=== PATIENT | male | born 1965 | race American Indian/Alaskan Native ===

== ENCOUNTER 2017-06-10 00:10 | Inpatient (IN) | payer OTHER ==
--- NOTE | 2017-06-10 00:49 | Emergency Department Report ---
ED Palpitations HPI - General Chief Complaint: Arrhythmia/Palpitations Stated Complaint: SYNCOPAL EPISODES Time Seen by Provider: 06/10/17 00:42 Source: patient, EMS Mode of arrival: Stretcher Limitations: No Limitations - History of Present Illness Initial Comments: Patient was brought in by EMS after syncopal episode at home. On EMS arrival, patient was in A.fib with RVR. On arrival to ER, patient was in V.Tach. EMS gave patient one dose of Amiodarone without conversion of rhythm. - Related Data Allergies Allergy/AdvReac Type Severity Reaction Status Date / Time Sulfa (Sulfonamide Allergy Hives Verified 06/10/17 00:31 Antibiotics) ED Review of Systems ROS: Stated complaint: SYNCOPAL EPISODES Other details as noted in HPI Comment: All other systems reviewed and negative Constitutional: diaphoresis. denies: chills, fever Eyes: denies: eye pain, eye discharge, vision change ENT: denies: ear pain, throat pain Respiratory: denies: cough, shortness of breath, wheezing Cardiovascular: denies: chest pain, palpitations Endocrine: no symptoms reported Gastrointestinal: denies: abdominal pain, nausea, diarrhea Genitourinary: denies: urgency, dysuria Musculoskeletal: denies: back pain, joint swelling, arthralgia Skin: denies: rash, lesions Neurological: other (Syncope). denies: headache, weakness, paresthesias Psychiatric: denies: anxiety, depression Hematological/Lymphatic: denies: easy bleeding, easy bruising ED Past Medical Hx - Past Medical History Hx Hypertension: Yes Hx Congestive Heart Failure: Yes Hx Diabetes: Yes Additional medical history: gout - Surgical History Past Surgical History?: No - Family History Family history: hypertension - Social History Smoking Status: Former Smoker Substance Use Type: None ED Physical Exam - General Limitations: No Limitations General appearance: alert, in no apparent distress, anxious - Head Head exam: Present: atraumatic, normocephalic - Eye Eye exam: Present: normal appearance - ENT ENT exam: Present: mucous membranes moist - Neck Neck exam: Present: normal inspection - Respiratory Respiratory exam: Present: normal lung sounds bilaterally. Absent: respiratory distress - Cardiovascular Cardiovascular Exam: Present: regular rate, tachycardia, irregular rhythm. Absent: normal rhythm, systolic murmur, diastolic murmur, rubs, gallop - GI/Abdominal GI/Abdominal exam: Present: soft, normal bowel sounds - Rectal Rectal exam: Present: deferred - Extremities Exam Extremities exam: Present: normal inspection, pedal edema - Back Exam Back exam: Present: normal inspection - Neurological Exam Neurological exam: Present: alert, oriented X3 - Psychiatric Psychiatric exam: Present: normal affect, normal mood - Skin Skin exam: Present: warm, dry, intact, normal color. Absent: rash ED Course - Reevaluation(s) Reevaluation #1: 06/10/17 00:59 Patient and alert and responsive. Presently having a conversation with nurse at bedside. He is aware that his heart rhythm is abnormal and we are attempting to stabilize it. Critical Care Time: Yes Critical care attestation.: If time is entered above; I have spent that time in minutes in the direct care of this critically ill patient, excluding procedure time. ED Disposition Condition: Stable Referrals: MONTY ERNST MD [Primary Care Provider] - 3-5 Days
[2017-06-10] MEDS ORDERED: CARDIZEM 100 MG in D5W 80 ML IV SCH (01:00)
[2017-06-10 01:01] LABS: Hematocrit 42.4 % (35.5-45.6); Hemoglobin 13.9 gm/dl (11.8-15.2); Mean Corpuscular HGB Conc 33 % (32-34); Mean Corpuscular Hemoglobin 31 pg (28-32); Mean Corpuscular Volume 94 fl (84-94); Platelet Count 204 K/mm3 (140-440); Red Blood Count 4.49 M/mm3 (3.65-5.03); Red Cell Distribution Width 15.7 % (13.2-15.2)
--- NOTE | 2017-06-10 01:04 | XRay Report ---
FINAL REPORT EXAM: XR CHEST 1V AP HISTORY: syncope COMPARISON: None available. FINDINGS: Frontal view(s) of the chest obtained. Moderate cardiac enlargement. Shallow inspiration with crowding of bronchovascular markings. No gross focal consolidation or effusion. No pneumothorax. IMPRESSION: Moderate cardiac enlargement. Shallow inspiration. No gross focal consolidation.
[2017-06-10 01:11] LABS: INR 1.71 (0.87-1.13)
[2017-06-10] MEDS: CORDARONE 900 MG in D5W 482 ML IV SCH (01:20)
[2017-06-10 01:25] LABS: Albumin 3.5 g/dL (3.9-5); Calcium 8.9 mg/dL (8.4-10.2)
[2017-06-10 01:49] LABS: Chol/HDL Ratio 2.86 %
[2017-06-10] MEDS ORDERED: TORADOL IV ONE (02:54)
[2017-06-10 03:10] LABS: Band Neutrophils # (Manual) 5.5 K/mm3; Basophils % (Manual) 0 % (0.0-1.8); Eosinophils % (Manual) 0 % (0.0-4.3); Total Cells Counted 100
[2017-06-10 03:11] LABS: Anisocytosis 1+; Hypochromasia Few
[2017-06-10] MEDS ORDERED: PERCOCET 5/325 PO PRN (03:48)
[2017-06-10] MEDS ORDERED: MILK OF MAGNESIA PO PRN (03:48)
[2017-06-10] MEDS ORDERED: DULCOLAX PR PRN (03:48)
[2017-06-10] MEDS ORDERED: ZOFRAN IV PRN (03:48)
[2017-06-10] MEDS ORDERED: D50W (25GM) Syringe IV PRN (03:52)
[2017-06-10] MEDS ORDERED: VANCOMYCIN/NS 1 GM/250 ML 1 GM/250 ML BAG IV ONE (04:05)
--- NOTE | 2017-06-10 05:57 | History and Physical Report ---
History of Present Illness Date of examination: 06/10/17 Date of admission: 06/10/17 03:48 History of present illness: 51-year-old male a history of CHF, gout, diabetes, A. fib on Coumadin and had a syncopal episode at home for approximately 10 minutes. EMS was called and patient was brought to the emergency room for evaluation. He was found to be in V. tach, shocked 3 and was started on amiodarone drip Review Of Systems: Constitutional: no weight loss Ears, eyes, nose, mouth and throat: no nasal congestion, no nasal discharge, no sinus pressure, blurry vision, diplopia Neck: No neck pain or rigidity. Cardiovascular: No chest pain, palpitations Respiratory: No shortness of breath, cough Gastrointestinal: No abdominal pain, hematochezia Genitourinary : no dysuria, frequency , hematuria Musculoskeletal: no muscle ache Integumentary: no rash, no pruritis Neurological: no parathesias, focal weakness Endocrine: no cold or heat intolerance, no polyuria or polydipsia Hematologic/Lymphatic: no easy bruising, no easy bleeding, no gland swelling Allergic/Immunologic: no urticaria, no angioedema. PAST MEDICAL HISTORY:CHF, gout, diabetes, A. fib PAST SURGICAL HISTORY: None FAMILY HISTORY: Hypertension SOCIAL HISTORY: Denies alcohol, tobacco, drugs Medications and Allergies Allergies Allergy/AdvReac Type Severity Reaction Status Date / Time Sulfa (Sulfonamide Allergy Hives Verified 06/10/17 00:31 Antibiotics) Home Medications Medication Instructions Recorded Confirmed Last Taken Type Albuterol Sulfate [Ventolin Hfa] 2 puff IH Q4H PRN 06/10/17 06/10/17 Unknown History Allopurinol 300 mg PO QDAY 06/10/17 06/10/17 06/09/17 History Amiodarone [Cordarone 200 MG TAB] 200 mg PO DAILY 06/10/17 06/10/17 06/09/17 History Bumetanide 2 mg PO TID 06/10/17 06/10/17 06/09/17 History Digoxin [Lanoxin] 0.125 mg PO DAILY 06/10/17 06/10/17 06/09/17 History Gabapentin [Neurontin] 200 mg PO BID 06/10/17 06/10/17 Unknown History ISOSORBIDE MONOnitrate [Imdur ER] 60 mg PO QDAY 06/10/17 06/10/17 06/09/17 History Lisinopril [Zestril TAB] 2.5 mg PO QDAY 06/10/17 06/10/17 06/09/17 History Lovastatin [Altoprev] 40 mg PO DAILY 06/10/17 06/10/17 06/09/17 History Metoprolol [Lopressor TAB] 50 mg PO TID 06/10/17 06/10/17 06/09/17 History Nitroglycerin [Nitrostat] 0.4 mg SL Q5M PRN 06/10/17 06/10/17 Unknown History [place]-3S/Dha/Epa/Fish Oil [[place]-3 1 each PO BID 06/10/17 06/10/17 06/09/17 History Fish Oil 1,000 mg Sfgl] Oxycodone HCl/Acetaminophen 1 each PO BID PRN 06/10/17 06/10/17 Unknown History [Percocet 10/325 mg] Warfarin [Coumadin] 5 mg PO QDAY 06/10/17 06/10/17 06/09/17 History glipiZIDE [Glipizide] 10 mg PO BID 06/10/17 06/10/17 06/09/17 History predniSONE [Deltasone] 20 mg PO QDAY 06/10/17 06/10/17 06/09/17 History Active Meds: Active Medications Acetaminophen (Tylenol) 650 mg PO Q4H PRN PRN Reason: Pain MILD(1-3)/Fever >100.5/WHEELER Bisacodyl (Dulcolax) 10 mg [place] QDAY PRN PRN Reason: Constipation unrelieved by MOM Dextrose (D50w (25gm) Syringe) 50 ml IV PRN PRN PRN Reason: Hypoglycemia Amiodarone HCl 900 mg/ (Dextrose) 500 mls @ 33.33 mls/hr IV DIRECT MIGUE; 1 MG /MIN PRN Reason: Protocol Last Admin: 06/10/17 01:20 Dose: 1 mg/min, 33.33 mls/hr Piperacillin Sod/Tazobactam Sod (Zosyn/Ns 2.25 Gm/50ml) 2.25 gm in 50 mls @ 100 mls/hr IV Q6HR MIGUE Insulin Aspart (Novolog) 0 units SUB-Q ACHS MIGUE PRN Reason: Protocol Magnesium Hydroxide (Milk Of Magnesia) 30 ml PO Q4H PRN PRN Reason: Constipation Ondansetron HCl (Zofran) 4 mg IV Q8H PRN PRN Reason: N/V unrelieved by Reglan Oxycodone/Acetaminophen (Percocet 5/325) 1 tab PO Q6H PRN PRN Reason: Pain, Moderate (4-6) Exam - Physical Exam Narrative exam: Gen. appearance: Patient lying in bed in no acute distress HEENT: Normocephalic/atraumatic, pupils equal round reactive to light, extra occular movement intact, no scleral icterus, no JVD or thyromegaly or nodule, neck is supple, mucous membrane moist, no erythema or exudate Heart: S1-S2, regular rate and rhythm Lungs: Clear to auscultation bilateral breathing comfortable Abdomen: Positive bowel sounds, nontender, nondistended, no organomegaly Extremities: No edema, cyanosis, clubbing Neuro:: Oriented 3 , cranial nerves II-12 intact, speech, motor intact Skin: No rash, nodules, warm dry - Constitutional Vitals: Temp Pulse Resp BP Pulse Ox 60 20 102/42 99 06/10/17 05:30 06/10/17 05:30 06/10/17 05:30 06/10/17 05:30 Results - Labs CBC & Chem 7: 06/14/17 05:16 06/14/17 05:16 Labs: Abnormal lab results 06/10/17 06/10/17 06/10/17 Range/Units 00:35 00:47 00:47 WBC 21.3 H (4.5-11.0) K/mm3 RDW 15.7 H (13.2-15.2) % Lymphocytes % (Manual) 9.0 L (13.4-35.0) % Seg Neutrophils # Man 10.9 H (1.8-7.7) K/mm3 Monocytes # (Manual) 1.1 H (0.0-0.8) K/mm3 PT 21.0 H (12.2-14.9) Sec. INR 1.71 H (0.87-1.13) APTT 24.0 L (24.2-36.6) Sec. POC ABG pCO2 34.8 L (35-45) POC ABG pO2 56 L (80-105) BUN (9-20) mg/dL Creatinine (0.8-1.5) mg/dL Glucose (75-100) mg/dL AST (5-40) units/L Troponin T (0.00-0.029) ng/mL NT-Pro-B Natriuret Pep (0-900) pg/mL Albumin (3.9-5) g/dL Triglycerides (2-149) mg/dL HDL Cholesterol (40-59) mg/dL 06/10/17 06/10/17 06/10/17 Range/Units 00:47 00:47 02:40 WBC (4.5-11.0) K/mm3 RDW (13.2-15.2) % Lymphocytes % (Manual) (13.4-35.0) % Seg Neutrophils # Man (1.8-7.7) K/mm3 Monocytes # (Manual) (0.0-0.8) K/mm3 PT (12.2-14.9) Sec. INR (0.87-1.13) APTT (24.2-36.6) Sec. POC ABG pCO2 (35-45) POC ABG pO2 (80-105) BUN 35 H (9-20) mg/dL Creatinine 2.0 H (0.8-1.5) mg/dL Glucose 187 H (75-100) mg/dL AST 43 H (5-40) units/L Troponin T 0.049 H (0.00-0.029) ng/mL NT-Pro-B Natriuret Pep 3826 H (0-900) pg/mL Albumin 3.5 L (3.9-5) g/dL Triglycerides 155 H (2-149) mg/dL HDL Cholesterol 61 H (40-59) mg/dL - Imaging and Cardiology EKG: image reviewed Chest x-ray: image reviewed Assessment and Plan Assessment V. tach/A. fib Syncope secondary to #1 SIRS Abnormal cardiac enzymes CHF, stable Gout Diabetes Plan Admit to medicine Continue amiodarone drip, check cardiac enzymes, echo Consult cardiology, critical care Start and pelvic antibiotics with Zosyn, vancomycin, full cultures CAT scan of the chest and head was ordered but the patient was not able to sit on the scanner secondary to his weight Check d-dimer, DVT prophylaxis with Coumadin check fingersticks initiated insulin sliding scale
[2017-06-10] MEDS ORDERED: ZOSYN/NS 4.5GM/100ML 4.5 GM/100 ML VIAL IV SCH (06:00)
[2017-06-10] MEDS: ZOSYN/NS 2.25 GM/50ML 2.25 GM/50 ML BAG IV SCH ×3 (07:10→20:55)
[2017-06-10] MEDS: NOVOLOG SUB-Q SCH ×4 (10:07→23:10)
--- NOTE | 2017-06-10 17:55 | Event Note ---
Date: 06/10/17 Patient was seen and evaluated this morning, patient didn't have any complaints , continue management for H&P.
[2017-06-10 22:19] LABS: Creatine Kinase MB 2.2 ng/mL (0.0-4.0)
[2017-06-10] MEDS: TYLENOL PO PRN (23:18)
[2017-06-11] MEDS: ZOSYN/NS 2.25 GM/50ML 2.25 GM/50 ML BAG IV SCH ×4 (01:10→20:01)
[2017-06-11] MEDS: CORDARONE 900 MG in D5W 482 ML IV SCH (02:25)
[2017-06-11 06:17] LABS: Basophils % (Auto) 0.5 % (0.0-1.8); Eosinophils # (Auto) 0.1 K/mm3 (0.0-0.4); Eosinophils % (Auto) 0.6 % (0.0-4.3); Hematocrit 38.8 % (35.5-45.6); Hemoglobin 12.9 gm/dl (11.8-15.2); Lymphocytes # (Auto) 1.2 K/mm3 (1.2-5.4); Lymphocytes % (Auto) 12.7 % (13.4-35.0); Mean Corpuscular HGB Conc 33 % (32-34); Mean Corpuscular Hemoglobin 31 pg (28-32); Mean Corpuscular Volume 94 fl (84-94); Monocytes # (Auto) 0.6 K/mm3 (0.0-0.8); Monocytes % (Auto) 6.9 % (0.0-7.3); Platelet Count 155 K/mm3 (140-440); Red Blood Count 4.13 M/mm3 (3.65-5.03); Red Cell Distribution Width 15.8 % (13.2-15.2)
[2017-06-11] MEDS: NOVOLOG SUB-Q SCH ×4 (08:05→21:20)
[2017-06-11] MEDS: TYLENOL PO PRN (08:44)
--- NOTE | 2017-06-11 09:20 | Consultation ---
History of Present Illness Consult date: 06/11/17 Requesting physician: SAIMA GUEVARA Consult reason: arrhythmia History of present illness: Mick Buck is a 51 y.o. male who is followed by [place] [facility] with a history of chronic systolic heart failure, afib on coumadin, hypertension, diabetes, hyperlipidemia, CKD, NHUNG on CPAP, morbid obesity who presented following a syncopal episode at home. He was found to be in v tach vs. afib with abberancy and was shocked x 3 and started on an amiodarone gtt. He is currently in afib with controlled ventricular rate. He denies any chest pain or previous syncopal episodes. He has chronic shortness of breath and HOUSE. Echo showed EF 10-15%, RVSP 59 mmHg. Past History Past Medical History: atrial fib, heart failure, hypertension, hyperlipidemia, other (cardiomyopathy, CKD, NHUNG on CPAP) Past Surgical History: No surgical history Social history: . denies: smoking, alcohol abuse Family history: no significant family history Medications and Allergies Allergies Allergy/AdvReac Type Severity Reaction Status Date / Time Sulfa (Sulfonamide Allergy Hives Verified 06/10/17 00:31 Antibiotics) Home Medications Medication Instructions Recorded Confirmed Last Taken Type Albuterol Sulfate [Ventolin Hfa] 2 puff IH Q4H PRN 06/10/17 06/10/17 Unknown History Allopurinol 300 mg PO QDAY 06/10/17 06/10/17 06/09/17 History Amiodarone [Cordarone 200 MG TAB] 200 mg PO DAILY 06/10/17 06/10/17 06/09/17 History Bumetanide 2 mg PO TID 06/10/17 06/10/17 06/09/17 History Digoxin [Lanoxin] 0.125 mg PO DAILY 06/10/17 06/10/17 06/09/17 History Gabapentin [Neurontin] 200 mg PO BID 06/10/17 06/10/17 Unknown History ISOSORBIDE MONOnitrate [Imdur ER] 60 mg PO QDAY 06/10/17 06/10/17 06/09/17 History Lisinopril [Zestril TAB] 2.5 mg PO QDAY 06/10/17 06/10/17 06/09/17 History Lovastatin [Altoprev] 40 mg PO DAILY 06/10/17 06/10/17 06/09/17 History Metoprolol [Lopressor TAB] 50 mg PO TID 06/10/17 06/10/17 06/09/17 History Nitroglycerin [Nitrostat] 0.4 mg SL Q5M PRN 06/10/17 06/10/[address] [place]-3S/Dha/Epa/Fish Oil [[place]-3 1 each PO BID 06/10/17 06/10/17 06/09/17 History Fish Oil 1,000 mg Sfgl] Oxycodone HCl/Acetaminophen 1 each PO BID PRN 06/10/17 06/10/17 Unknown History [Percocet 10/325 mg] Warfarin [Coumadin] 5 mg PO QDAY 06/10/17 06/10/17 06/09/17 History glipiZIDE [Glipizide] 10 mg PO BID 06/10/17 06/10/17 06/09/17 History predniSONE [Deltasone] 20 mg PO QDAY 06/10/17 06/10/17 06/09/17 History Active Meds: Active Medications Acetaminophen (Tylenol) 650 mg PO Q4H PRN PRN Reason: Pain MILD(1-3)/Fever >100.5/WHEELER Last Admin: 06/11/17 08:44 Dose: 650 mg Bisacodyl (Dulcolax) 10 mg [place] QDAY PRN PRN Reason: Constipation unrelieved by MOM Dextrose (D50w (25gm) Syringe) 50 ml IV PRN PRN PRN Reason: Hypoglycemia Last Admin: 06/11/17 06:55 Dose: 50 ml Amiodarone HCl 900 mg/ (Dextrose) 500 mls @ 33.33 mls/hr IV DIRECT MIGUE; 1 MG /MIN PRN Reason: Protocol Last Admin: 06/11/17 02:25 Dose: 1 mg/min, 33.33 mls/hr Piperacillin Sod/Tazobactam Sod (Zosyn/Ns 2.25 Gm/50ml) 2.25 gm in 50 mls @ 100 mls/hr IV Q6HR MIGUE Last Admin: 06/11/17 06:54 Dose: 100 mls/hr Insulin Aspart (Novolog) 0 units SUB-Q ACHS MIGUE PRN Reason: Protocol Last Admin: 06/11/17 08:05 Dose: Not Given Magnesium Hydroxide (Milk Of Magnesia) 30 ml PO Q4H PRN PRN Reason: Constipation Ondansetron HCl (Zofran) 4 mg IV Q8H PRN PRN Reason: N/V unrelieved by Reglan Oxycodone/Acetaminophen (Percocet 5/325) 1 tab PO Q6H PRN PRN Reason: Pain, Moderate (4-6) Review of Systems Constitutional: no fever, no chills Ears, nose, mouth and throat: no nasal congestion, no nasal discharge, no sinus pressure Cardiovascular: orthopnea, shortness of breath, dyspnea on exertion, no chest pain Respiratory: shortness of breath, dyspnea on exertion, no cough, no congestion, no wheezing Gastrointestinal: no abdominal pain, no nausea, no vomiting, no diarrhea Genitourinary Male: no dysuria, no hematuria Musculoskeletal: no neck stiffness, no neck pain, no myalgias Neurological: syncope, no parathesias, no numbness, no tingling Endocrine: no cold intolerance, no heat intolerance Hematologic/Lymphatic: no easy bruising, no easy bleeding Allergic/Immunologic: no urticaria, no wheezing Physical Examination Last Vital Signs Temp 99.0 F 06/11/17 12:01 Pulse 86 06/11/17 12:01 Resp 20 06/11/17 12:01 BP 131/54 06/11/17 12:01 Pulse Ox 93 06/11/17 12:01 General appearance: no acute distress HEENT: Positive: PERRL, Normocephaly, Mucus Membranes Moist Neck: Positive: neck supple, trachea midline Cardiac: Positive: irregularly irregular, S1/S2 Lungs: Positive: Decreased Breath Sounds Neuro: Positive: Grossly Intact Abdomen: Positive: Soft, Active Bowel Sounds. Negative: Tender Skin: Negative: Rash Extremities: Present: +2 Edema Results 06/11/17 05:47 06/11/17 05:47 Cardiac Enzymes 06/10/17 Range/Units 21:45 CK-MB (CK-2) 2.2 (0.0-4.0) ng/mL CBC 06/11/17 Range/Units 05:47 WBC 9.3 (4.5-11.0) K/mm3 RBC 4.13 (3.65-5.03) M/mm3 Hgb 12.9 (11.8-15.2) gm/dl Hct 38.8 (35.5-45.6) % Plt Count 155 (140-440) K/mm3 Lymph # 1.2 (1.2-5.4) K/mm3 [place] # 0.6 (0.0-0.8) K/mm3 Eos # 0.1 (0.0-0.4) K/mm3 Baso # 0.0 (0.0-0.1) K/mm3 Comprehensive Metabolic Panel 06/11/17 Range/Units 05:47 Sodium 138 (137-145) mmol/L Potassium 4.3 (3.6-5.0) mmol/L Chloride 96.8 L (98-107) mmol/L Carbon Dioxide 27 (22-30) mmol/L BUN 44 H (9-20) mg/dL Creatinine 2.0 H (0.8-1.5) mg/dL Glucose 78 (75-100) mg/dL Calcium 9.0 (8.4-10.2) mg/dL - Imaging and Cardiology Echo: report reviewed (EF 10-15%) EKG: image reviewed EKG interpretations - Telemetry EKG Rhythm: Atrial Fibrillation - EKG Supraventricular dysrhythmia: atrial fibrillation Assessment and Plan Assessment: Syncope VT vs. afib with abberancy-->shocked x 3 Acute on chronic HFREF EF 10-15% Hypotension-->improved with Fever Chronic atrial fibrillation-->currently controlled ventricular rate Cardiomyopathy EF 10-15% Hypertension Hyperlipidemia Diabetes Chronic kidney disease NHUNG on CPAP Morbid obesity PLAN: Initiate PO amiodarone and d/c IV amio gtt after first PO dose given. Continue close monitoring of heart rate and rhythm. Patient will ultimately need ICD implantation. Await call back from [facility] as to whether procedure may be done here or if patient will need to be transferred to a [facility] facility. The patient has been seen in conjunction with Dr. Woodruff who agrees with the assessment and plan of care.
[2017-06-11] MEDS ORDERED: NACL 0.9% 250ML 250 ML IV ONE (10:19)
[2017-06-11] MEDS ORDERED: NACL 0.9% 500 ML 500 ML ONE (10:23)
[2017-06-11 12:16] LABS: Bacteria,Urine 1+ /HPF (Negative); Bilirubin,Urine NEG (Negative); Blood,Urine NEG (Negative); Color,Urine Yellow (Yellow); Nitrite,Urine NEG (Negative)
[2017-06-11] MEDS: CORDARONE PO SCH ×2 (15:13→21:20)
--- NOTE | 2017-06-11 15:17 | Progress Note ---
Assessment and Plan Assessment and plan: 51-year-old -German with past medical history significant for morbid obesity, congestive heart failure, sleep apnea, on CPAP as admitted yesterday after the patient has syncopal episode Syncopal episode - Secondary to V. fib versus A. fib with aberrancy - Patient was shocked 3 times yesterday - Patient is currently on amiodarone drip and to be switched to by mouth amiodarone - Patient needs ICD -Cardiology consulted Acute on chronic systolic CHF - Patient needs ICD before discharge Obstructive sleep apnea - Continue CPAP SIRS - Evidenced by leukocytosis and fever - Patient is on IV Zosyn Hypotension - Resolved DVT prophylaxis Disposition - I have discussed with [place] physician about the management plan, the need for ICD placement. Patient had hypotension this morning and was not stable for transfer at that time. Physician will call me tomorrow and we'll discuss for further management plan. History Interval history: Patient was seen and evaluated this morning, patient denied shortness of breath , syncopal episode after admission, chest pain. Hospitalist Physical - Physical exam Narrative exam: Not in cardiopulmonary distress. Patient is on BiPAP intermittently. The patient is morbidly obese. Vital signs as documented. Head exam is unremarkable. No scleral icterus . Neck is without jugular venous distension, thyromegaly, or carotid bruits. Lungs are clear to auscultation. Cardiac exam reveals regular rate and Rhythm. Abdominal exam reveals obese abdomen. Extremities are nonedematous and both femoral and pedal pulses are normal. 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 No focal weakness. - Constitutional Vitals: Temp Pulse Resp BP Pulse Ox 99.0 F 86 20 131/54 93 06/11/17 12:01 06/11/17 12:01 06/11/17 12:01 06/11/17 12:01 06/11/17 12:01 General appearance: Present: no acute distress Results - Labs CBC & Chem 7: 06/11/17 05:47 06/11/17 05:47 Labs: Laboratory Last Values WBC 9.3 K/mm3 (4.5-11.0) 06/11/17 05:47 RBC 4.13 M/mm3 (3.65-5.03) 06/11/17 05:47 Hgb 12.9 gm/dl (11.8-15.2) 06/11/17 05:47 Hct 38.8 % (35.5-45.6) 06/11/17 05:47 MCV 94 fl (84-94) 06/11/17 05:47 MCH 31 pg (28-32) 06/11/17 05:47 MCHC 33 % (32-34) 06/11/17 05:47 RDW 15.8 % (13.2-15.2) H 06/11/17 05:47 Plt Count 155 K/mm3 (140-440) 06/11/17 05:47 Lymph % (Auto) 12.7 % (13.4-35.0) L 06/11/17 05:47 [place] % (Auto) 6.9 % (0.0-7.3) 06/11/17 05:47 Eos % (Auto) 0.6 % (0.0-4.3) 06/11/17 05:47 Baso % (Auto) 0.5 % (0.0-1.8) 06/11/17 05:47 Lymph # 1.2 K/mm3 (1.2-5.4) 06/11/17 05:47 [place] # 0.6 K/mm3 (0.0-0.8) 06/11/17 05:47 Eos # 0.1 K/mm3 (0.0-0.4) 06/11/17 05:47 Baso # 0.0 K/mm3 (0.0-0.1) 06/11/17 05:47 Add Manual Diff Complete 06/10/17 00:47 Total Counted 100 06/10/17 00:47 Seg Neutrophils % 79.3 % (40.0-70.0) H 06/11/17 05:47 Seg Neuts % (Manual) 51.0 % (40.0-70.0) 06/10/17 00:47 Band Neutrophils % 26.0 % 06/10/17 00:47 Lymphocytes % (Manual) 9.0 % (13.4-35.0) L 06/10/17 00:47 Reactive Lymphs % (Man) 0 % 06/10/17 00:47 Monocytes % (Manual) 5.0 % (0.0-7.3) 06/10/17 00:47 Eosinophils % (Manual) 0 % (0.0-4.3) 06/10/17 00:47 Basophils % (Manual) 0 % (0.0-1.8) 06/10/17 00:47 Metamyelocytes % 9.0 % 06/10/17 00:47 Myelocytes % 0 % 06/10/17 00:47 Promyelocytes % 0 % 06/10/17 00:47 Blast Cells % 0 % 06/10/17 00:47 Nucleated RBC % Not Reportable 06/10/17 00:47 Seg Neutrophils # 7.4 K/mm3 (1.8-7.7) 06/11/17 05:47 Seg Neutrophils # Man 10.9 K/mm3 (1.8-7.7) H 06/10/17 00:47 Band Neutrophils # 5.5 K/mm3 06/10/17 00:47 Lymphocytes # (Manual) 1.9 K/mm3 (1.2-5.4) 06/10/17 00:47 Abs React Lymphs (Man) 0.0 K/mm3 06/10/17 00:47 Monocytes # (Manual) 1.1 K/mm3 (0.0-0.8) H 06/10/17 00:47 Eosinophils # (Manual) 0.0 K/mm3 (0.0-0.4) 06/10/17 00:47 Basophils # (Manual) 0.0 K/mm3 (0.0-0.1) 06/10/17 00:47 Metamyelocytes # 1.9 K/mm3 06/10/17 00:47 Myelocytes # 0.0 K/mm3 06/10/17 00:47 Promyelocytes # 0.0 K/mm3 06/10/17 00:47 Blast Cells # 0.0 K/mm3 06/10/17 00:47 WBC Morphology Not Reportable 06/10/17 00:47 Hypersegmented Neuts Not Reportable 06/10/17 00:47 Hyposegmented Neuts Not Reportable 06/10/17 00:47 Hypogranular Neuts Not Reportable 06/10/17 00:47 Smudge Cells Not Reportable 06/10/17 00:47 Toxic Granulation Not Reportable 06/10/17 00:47 Toxic Vacuolation Not Reportable 06/10/17 00:47 Dohle Bodies Not Reportable 06/10/17 00:47 Pelger-Huet Anomaly Not Reportable 06/10/17 00:47 Dolly Rods Not Reportable 06/10/17 00:47 Platelet Estimate Appears normal 06/10/17 00:47 Clumped Platelets Not Reportable 06/10/17 00:47 Plt Clumps, EDTA Not Reportable 06/10/17 00:47 Large Platelets Not Reportable 06/10/17 00:47 Giant Platelets Not Reportable 06/10/17 00:47 Platelet Satelliting Not Reportable 06/10/17 00:47 Plt Morphology Comment Not Reportable 06/10/17 00:47 RBC Morphology Not Reportable 06/10/17 00:47 Dimorphic RBCs Not Reportable 06/10/17 00:47 Polychromasia Not Reportable 06/10/17 00:47 Hypochromasia Few 06/10/17 00:47 Poikilocytosis Not Reportable 06/10/17 00:47 Anisocytosis 1+ 06/10/17 00:47 Microcytosis Not Reportable 06/10/17 00:47 Macrocytosis Not Reportable 06/10/17 00:47 Spherocytes Not Reportable 06/10/17 00:47 Pappenheimer Bodies Not Reportable 06/10/17 00:47 Sickle Cells Not Reportable 06/10/17 00:47 Target Cells Not Reportable 06/10/17 00:47 Tear Drop Cells Not Reportable 06/10/17 00:47 Ovalocytes Not Reportable 06/10/17 00:47 Helmet Cells Not Reportable 06/10/17 00:47 [place] Bodies Not Reportable 06/10/17 00:47 [place] Rings Not Reportable 06/10/17 00:47 Meryl Cells Not Reportable 06/10/17 00:47 Bite Cells Not Reportable 06/10/17 00:47 Crenated Cell Not Reportable 06/10/17 00:47 Elliptocytes Not Reportable 06/10/17 00:47 Acanthocytes (Spur) Not Reportable 06/10/17 00:47 Rouleaux Not Reportable 06/10/17 00:47 Hemoglobin C Crystals Not Reportable 06/10/17 00:47 Schistocytes Not Reportable 06/10/17 00:47 Malaria parasites Not Reportable 06/10/17 00:47 Antwan Bodies Not Reportable 06/10/17 00:47 Hem Pathologist Commnt No 06/10/17 00:47 PT 21.0 Sec. (12.2-14.9) H 06/10/17 00:47 INR 1.71 (0.87-1.13) H 06/10/17 00:47 APTT 24.0 Sec. (24.2-36.6) L 06/10/17 00:47 D-Dimer 4355.41 ng/mlDDU (0-234) H 06/10/17 21:45 POC ABG pH 7.443 (7.35-7.45) 06/10/17 00:35 POC ABG pCO2 34.8 (35-45) L 06/10/17 00:35 POC ABG pO2 56 (80-105) L 06/10/17 00:35 POC ABG HCO3 23.8 06/10/17 00:35 POC ABG Total CO2 25 06/10/17 00:35 POC ABG O2 Sat 90 06/10/17 00:35 POC ABG Base Excess 0 06/10/17 00:35 FiO2 100 % 06/10/17 00:35 Sodium 138 mmol/L (137-145) 06/11/17 05:47 Potassium 4.3 mmol/L (3.6-5.0) 06/11/17 05:47 Chloride 96.8 mmol/L (98-107) L 06/11/17 05:47 Carbon Dioxide 27 mmol/L (22-30) 06/11/17 05:47 Anion Gap 19 mmol/L 06/11/17 05:47 BUN 44 mg/dL (9-20) H 06/11/17 05:47 Creatinine 2.0 mg/dL (0.8-1.5) H 06/11/17 05:47 Estimated GFR 43 ml/min 06/11/17 05:47 BUN/Creatinine Ratio 22 % 06/11/17 05:47 Glucose 78 mg/dL (75-100) 06/11/17 05:47 POC Glucose 108 (70-105) H 06/11/17 12:10 Lactic Acid 1.70 mmol/L (0.7-2.0) 06/10/17 02:47 Calcium 9.0 mg/dL (8.4-10.2) 06/11/17 05:47 Total Bilirubin 0.50 mg/dL (0.1-1.2) 06/10/17 00:47 AST 43 units/L (5-40) H 06/10/17 00:47 ALT 30 units/L (7-56) 06/10/17 00:47 Alkaline Phosphatase 119 units/L (35-129) 06/10/17 00:47 Total Creatine Kinase 102 units/L (55-170) 06/10/17 21:45 CK-MB (CK-2) 2.2 ng/mL (0.0-4.0) 06/10/17 21:45 CK-MB (CK-2) Rel Index 2.1 (0-4) 06/10/17 21:45 Troponin T 0.063 ng/mL (0.00-0.029) H D 06/10/17 21:45 NT-Pro-B Natriuret Pep 3826 pg/mL (0-900) H 06/10/17 02:40 Total Protein 7.2 g/dL (6.3-8.2) 06/10/17 00:47 Albumin 3.5 g/dL (3.9-5) L 06/10/17 00:47 Albumin/Globulin Ratio 0.9 % 06/10/17 00:47 Triglycerides 155 mg/dL (2-149) H 06/10/17 00:47 Cholesterol 175 mg/dL (50-199) 06/10/17 00:47 LDL Cholesterol Direct 83 mg/dL (50-130) 06/10/17 00:47 HDL Cholesterol 61 mg/dL (40-59) H 06/10/17 00:47 Cholesterol/HDL Ratio 2.86 % 06/10/17 00:47 Urine Color Yellow (Yellow) 06/11/17 11:39 Urine Turbidity Cloudy (Clear) 06/11/17 11:39 Urine pH 5.0 (5.0-7.0) 06/11/17 11:39 Ur Specific [place] 1.016 (1.003-1.030) 06/11/17 11:39 Urine Protein 30 mg/dl mg/dL (Negative) 06/11/17 11:39 Urine Glucose (UA) Neg mg/dL (Negative) 06/11/17 11:39 Urine Ketones Neg mg/dL (Negative) 06/11/17 11:39 Urine Blood Neg (Negative) 06/11/17 11:39 Urine Nitrite Neg (Negative) 06/11/17 11:39 Urine Bilirubin Neg (Negative) 06/11/17 11:39 Urine Urobilinogen 2.0 mg/dL (<2.0) 06/11/17 11:39 Ur Leukocyte Esterase Mod (Negative) 06/11/17 11:39 Urine WBC (Auto) 31.0 /HPF (0.0-6.0) H 06/11/17 11:39 Urine RBC (Auto) 4.0 /HPF (0.0-6.0) 06/11/17 11:39 U Epithel Cells (Auto) 1.0 /HPF (0-13.0) 06/11/17 11:39 Urine Bacteria (Auto) 1+ /HPF (Negative) 06/11/17 11:39
[2017-06-11] MEDS ORDERED: PROAIR IH PRN (17:36)
[2017-06-11] MEDS ORDERED: PROVENTIL IH PRN (17:42)
[2017-06-11] MEDS ORDERED: COUMADIN PO SCH (18:00)
[2017-06-11] MEDS: COUMADIN PO SCH (18:51)
[2017-06-11] MEDS: GLUCOTROL PO SCH (21:19)
[2017-06-11] MEDS: PRAVACHOL PO SCH (21:19)
[2017-06-11] MEDS: NEURONTIN PO SCH (21:20)
[2017-06-12 00:30] LABS: INR 1.73 (0.87-1.13)
[2017-06-12] MEDS: ZOSYN/NS 2.25 GM/50ML 2.25 GM/50 ML BAG IV SCH ×3 (01:23→12:22)
[2017-06-12] MEDS: NOVOLOG SUB-Q SCH ×4 (07:49→21:31)
[2017-06-12 08:26] LABS: INR 1.64 (0.87-1.13)
[2017-06-12 09:26] LABS: Basophils # (Auto) 0.1 K/mm3 (0.0-0.1); Basophils % (Auto) 0.8 % (0.0-1.8); Eosinophils % (Auto) 0.3 % (0.0-4.3); Hematocrit 36.8 % (35.5-45.6); Hemoglobin 12.3 gm/dl (11.8-15.2); Lymphocytes # (Auto) 1.2 K/mm3 (1.2-5.4); Lymphocytes % (Auto) 17.4 % (13.4-35.0); Mean Corpuscular HGB Conc 33 % (32-34); Mean Corpuscular Hemoglobin 31 pg (28-32); Mean Corpuscular Volume 94 fl (84-94); Monocytes # (Auto) 0.8 K/mm3 (0.0-0.8); Monocytes % (Auto) 11.2 % (0.0-7.3); Platelet Count 151 K/mm3 (140-440); Red Blood Count 3.92 M/mm3 (3.65-5.03); Red Cell Distribution Width 15.5 % (13.2-15.2)
[2017-06-12 09:38] LABS: Calcium 8.6 mg/dL (8.4-10.2)
[2017-06-12] MEDS: NEURONTIN PO SCH ×2 (09:58→21:14)
[2017-06-12] MEDS: CORDARONE PO SCH ×2 (09:58→21:14)
[2017-06-12] MEDS: ZYLOPRIM PO SCH (09:58)
[2017-06-12] MEDS: GLUCOTROL PO SCH ×3 (09:58→21:31)
[2017-06-12] MEDS: DELTASONE PO SCH (10:00)
[2017-06-12] MEDS ORDERED: NON-FORMULARY (Lovastatin [Altoprev] 40 MG) PO SCH (10:00)
--- NOTE | 2017-06-12 11:35 | Progress Note ---
Assessment and Plan Assessment: Syncope VT vs. afib with abberancy-->shocked x 3 (06/11/17) Acute on chronic HFREF EF 10-15% Hypotension-->improved with IVF Fever/?bacteremia (1/2 positive blood cultures) Chronic atrial fibrillation-->currently controlled ventricular rate Cardiomyopathy EF 10-15% Hypertension Hyperlipidemia Diabetes Chronic kidney disease NHUNG on CPAP Morbid obesity PLAN: Patient remains in afib with CVR. Will resume low dose coreg and closely monitor blood pressure. Await call back from [place] as to whether ICD procedure may be done here or if patient will need to be transferred to a [place] facility. In the meantime, recommend ID consultation for recommendations regarding timing of ICD implantation given fever and possible bacteremia. The patient has been seen in conjunction with Dr. Woodruff who agrees with the assessment and plan of care. Subjective Date of service: 06/12/17 Principal diagnosis: syncope, vtach vs. afib with abberancy Interval history: The patient is resting in bed. No new complaints. Atrial fibrillation with controlled ventricular rate on the monitor. Objective Last Vital Signs Temp 99.6 F 06/12/17 07:31 Pulse 76 06/12/17 08:55 Resp 24 06/12/17 07:31 BP 118/59 06/12/17 07:31 Pulse Ox 91 06/12/17 07:31 - Physical Examination General: No Apparent Distress HEENT: Positive: PERRL, Normocephaly, Mucus Membranes Moist Neck: Positive: neck supple, trachea midline Cardiac: Positive: irregularly irregular, S1/S2 Lungs: Positive: clear to auscultation Neuro: Positive: Grossly Intact Abdomen: Positive: Soft, Active Bowel Sounds. Negative: Tender Skin: Negative: Rash Extremities: Present: +2 Edema - Labs and Meds Coagulation 06/11/17 06/12/17 Range/Units 23:32 07:19 PT 21.2 H 20.4 H (12.2-14.9) Sec. INR 1.73 H 1.64 H (0.87-1.13) CBC 06/12/17 Range/Units 09:05 WBC 7.2 (4.5-11.0) K/mm3 RBC 3.92 (3.65-5.03) M/mm3 Hgb 12.3 (11.8-15.2) gm/dl Hct 36.8 (35.5-45.6) % Plt Count 151 (140-440) K/mm3 Lymph # 1.2 (1.2-5.4) K/mm3 [place] # 0.8 (0.0-0.8) K/mm3 Eos # 0.0 (0.0-0.4) K/mm3 Baso # 0.1 (0.0-0.1) K/mm3 Comprehensive Metabolic Panel 06/12/17 Range/Units 09:05 Sodium 141 (137-145) mmol/L Potassium 4.2 (3.6-5.0) mmol/L Chloride 99.3 (98-107) mmol/L Carbon Dioxide 27 (22-30) mmol/L BUN 39 H (9-20) mg/dL Creatinine 1.8 H (0.8-1.5) mg/dL Glucose 78 (75-100) mg/dL Calcium 8.6 (8.4-10.2) mg/dL - Imaging and Cardiology EKG: image reviewed Echo: report reviewed (EF 10-15%) - Telemetry EKG Rhythm: Atrial Fibrillation
--- NOTE | 2017-06-12 14:54 | Consultation ---
History of Present Illness - Reason for Consult Consult date: 06/12/17 bacteremia Requesting physician: KARIE BERRY - History of Present Illness 51 years old morbidly obese male with history of chronic systolic heart failure , afib on coumadin, hypertension, diabetes, hyperlipidemia, CKD, NHUNG on CPAP, admitted on 07/11/17 due to a syncopal episode at home. He was found to be in v tach vs. afib with abberancy and was shocked x 3 and started on an amiodarone gtt. He is currently in afib with controlled ventricular rate. He denies any chest pain or previous syncopal episodes. He has chronic shortness of breath and HOUSE. Echo showed EF 10-15%. Denies any recent fever, chills, N/V/D, respiratory symptoms. Denies any wounds. In the emergency room, initial temperature was 101.3, heart rate 134, respiration 34, O2 sat 97, blood pressure 91/67. White count 21.3. Hemoglobin 13.9. Bands 26%. Creatinine 2. Urinalysis showed 31 white blood cells and moderate leukocyte esterase. Microbiology: Blood cultures: 1/2 Coag neg 2 of 2 Urine cultures: Current Antimicrobials: Zosyn Previous Antimicrobials: Past History Past Medical History: atrial fib, heart failure, hypertension, hyperlipidemia, other (cardiomyopathy, CKD, NHUNG on CPAP) Past Surgical History: No surgical history Social history: . denies: smoking, alcohol abuse Family history: no significant family history Medications and Allergies Allergies Allergy/AdvReac Type Severity Reaction Status Date / Time Sulfa (Sulfonamide Allergy Hives Verified 06/10/17 00:31 Antibiotics) Home Medications Medication Instructions Recorded Confirmed Last Taken Type Albuterol Sulfate [Ventolin Hfa] 2 puff IH Q4H PRN 06/10/17 06/10/17 Unknown History Allopurinol 300 mg PO QDAY 06/10/17 06/10/17 06/09/17 History Amiodarone [Cordarone 200 MG TAB] 200 mg PO DAILY 06/10/17 06/10/17 06/09/17 History Bumetanide 2 mg PO TID 06/10/17 06/10/17 06/09/17 History Digoxin [Lanoxin] 0.125 mg PO DAILY 06/10/17 06/10/17 06/09/17 History Gabapentin [Neurontin] 200 mg PO BID 06/10/17 06/10/17 Unknown History ISOSORBIDE MONOnitrate [Imdur ER] 60 mg PO QDAY 06/10/17 06/10/17 06/09/17 History Lisinopril [Zestril TAB] 2.5 mg PO QDAY 06/10/17 06/10/17 06/09/17 History Lovastatin [Altoprev] 40 mg PO DAILY 06/10/17 06/10/17 06/09/17 History Metoprolol [Lopressor TAB] 50 mg PO TID 06/10/17 06/10/17 06/09/17 History Nitroglycerin [Nitrostat] 0.4 mg SL Q5M PRN 06/10/17 06/10/17 Unknown History [place]-3S/Dha/Epa/Fish Oil [[place]-3 1 each PO BID 06/10/17 06/10/17 06/09/17 History Fish Oil 1,000 mg Sfgl] Oxycodone HCl/Acetaminophen 1 each PO BID PRN 06/10/17 06/10/17 Unknown History [Percocet 10/325 mg] Warfarin [Coumadin] 5 mg PO QDAY 06/10/17 06/10/17 06/09/17 History glipiZIDE [Glipizide] 10 mg PO BID 06/10/17 06/10/17 06/09/17 History predniSONE [Deltasone] 20 mg PO QDAY 06/10/17 06/10/17 06/09/17 History Active Meds: Active Medications Acetaminophen (Tylenol) 650 mg PO Q4H PRN PRN Reason: Pain MILD(1-3)/Fever >100.5/WHEELER Last Admin: 06/11/17 08:44 Dose: 650 mg Albuterol (Proventil) 2.5 mg IH Q4HRT PRN PRN Reason: Shortness Of Breath Allopurinol (Zyloprim) 300 mg PO QDAY [facility] Last Admin: 06/12/17 09:58 Dose: 300 mg Amiodarone HCl (Cordarone) 200 mg PO BID [facility] Last Admin: 06/12/17 09:58 Dose: 200 mg Bisacodyl (Dulcolax) 10 mg [place] QDAY PRN PRN Reason: Constipation unrelieved by MOM Carvedilol (Coreg) 3.125 mg PO BID [facility] Dextrose (D50w (25gm) Syringe) 50 ml IV PRN PRN PRN Reason: Hypoglycemia Last Admin: 06/11/17 06:55 Dose: 50 ml Gabapentin (Neurontin) 200 mg PO BID [facility] Last Admin: 06/12/17 09:58 Dose: 200 mg Glipizide (Glucotrol) 10 mg PO BID [facility] Last Admin: 06/12/17 12:21 Dose: Not Given Piperacillin Sod/Tazobactam Sod (Zosyn/Ns 4.5gm/100ml) 4.5 gm in 100 mls @ 200 mls/hr IV Q8H [facility] Insulin Aspart (Novolog) 0 units SUB-Q ACHS MIGUE PRN Reason: Protocol Last Admin: 06/12/17 12:20 Dose: Not Given Magnesium Hydroxide (Milk Of Magnesia) 30 ml PO Q4H PRN PRN Reason: Constipation Ondansetron HCl (Zofran) 4 mg IV Q8H PRN PRN Reason: N/V unrelieved by Reglan Oxycodone/Acetaminophen (Percocet 5/325) 1 tab PO Q6H PRN PRN Reason: Pain, Moderate (4-6) Pravastatin Sodium (Pravachol) 40 mg PO QHS [facility] Last Admin: 06/11/17 21:19 Dose: 40 mg Prednisone (Deltasone) 20 mg PO QDAY [facility] Last Admin: 06/12/17 10:00 Dose: 20 mg Warfarin Sodium (Coumadin) 7.5 mg PO DAILY@1700 [facility] Last Admin: 06/11/17 18:51 Dose: 7.5 mg Review of Systems All systems: negative (as per HPI rest of 10 point ROS neg) Physical Examination - Physical Exam Narrative exam: General appearance: Alert in NAD, conversant morbidly obese Eyes: anicteric sclerae, moist conjunctivae; no lid-lag; PERRLA HENT: Atraumatic; oropharynx clear Neck: Trachea midline; supple, no thyromegaly or lymphadenopathy Lungs: CTA CV: RRR s Abdomen: Soft, extensive pannus Extremities: cee leg edema Skin: Normal temperature, turgor and texture; no rash, ulcers or subcutaneous nodules Psych: Appropriate affect, alert and oriented to person, place and time. Neuro: alert and oriented x 3. Moving all extermities Lines: No CVL / PICC - Constitutional Vitals: Vital Signs Temp Pulse Resp BP Pulse Ox 99.1 F 76 24 117/83 91 06/12/17 11:41 06/12/17 08:55 06/12/17 11:41 06/12/17 11:41 06/12/17 07:31 Temperature -Last 24 Hours Temperature 99.1 F Temperature 99.6 F Temperature 98.5 F Temperature 100.9 F Temperature 99.9 F Temperature 98.3 F Results - Labs CBC & Chem 7: 06/12/17 09:05 06/12/17 09:05 Labs: Abnormal lab results 06/11/17 06/11/17 06/11/17 Range/Units 20:45 23:32 23:32 RDW (13.2-15.2) % [place] % (Auto) (0.0-7.3) % Seg Neutrophils % (40.0-70.0) % PT 21.2 H (12.2-14.9) Sec. INR 1.73 H (0.87-1.13) BUN (9-20) mg/dL Creatinine (0.8-1.5) mg/dL POC Glucose 107 H (70-105) Digoxin 0.8 L (0.9-2.0) ng/mL 06/12/17 06/12/17 06/12/17 Range/Units 07:19 09:05 09:05 RDW 15.5 H (13.2-15.2) % [place] % (Auto) 11.2 H (0.0-7.3) % Seg Neutrophils % 70.3 H (40.0-70.0) % PT 20.4 H (12.2-14.9) Sec. INR 1.64 H (0.87-1.13) BUN 39 H (9-20) mg/dL Creatinine 1.8 H (0.8-1.5) mg/dL POC Glucose (70-105) Digoxin (0.9-2.0) ng/mL Assessment and Plan Assessment: 1) SIRS: Present on admission, manifested by fever, tachycardia, hypotension, leukocytosis, bandemia. Etiology unclear ? UTI ? bacteremia 2) Syncopal episode at home 3) Coag neg Staph in blood cultures ? real vs a contaminant 4) V tach vs. afib with abberancy s/p shocked x 3 and started on an amiodarone gtt. Echo showed EF 10-15% 5) Chronic systolic heart failure 6) Afib on coumadin 7) Hypertension 8) Diabetes 9) CKD 10) NHUNG on CPAP Plan: -repeat blood cultures, check urine culture -obtain C-reactive protein (CRP) -hold off AICD placement -continue zosyn -add vanco renally dosed Thank you Dr Monzon for your consultation, will follow up with you. Kiara Sampson MD Infectious Diseases Specialist [facility], [place], [facility] ([facility] [phone] [id number] [phone]
--- NOTE | 2017-06-12 15:53 | Progress Note ---
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 fib versus A. fib with aberrancy - Patient was shocked 3 times yesterday - Patient is currently on amiodarone drip and to be switched to by mouth amiodarone - Patient needs ICD and ID said held ICD placement -Cardiology consulted Atrial fibrillation - Continue warfarin Acute on chronic systolic CHF - Patient needs ICD before discharge Obstructive sleep apnea - Continue CPAP SIRS - Evidenced by leukocytosis and fever - Patient is on IV Zosyn and vancomycin - ID consult appreciated Hypotension - Resolved CKD DVT prophylaxis - continue warfarin Disposition - I have discussed with [facility] physician about the management plan, the patient need for ICD placement. They agreed to keep the patient at our service. History Interval history: Patient was seen and evaluated this morning, patient denied shortness of breath , syncopal episode after admission, chest pain. Hospitalist Physical - Physical exam Narrative exam: Not in cardiopulmonary distress. Patient is on BiPAP continuously. The patient is morbidly obese. Vital signs as documented. Head exam is unremarkable. No scleral icterus . Neck is without jugular venous distension, thyromegaly, or carotid bruits. Lungs are clear to auscultation. Cardiac exam reveals regular rate and Rhythm. Abdominal exam reveals obese abdomen. Extremities are nonedematous and both femoral and pedal pulses are normal. MANAGER INTERMEDIATE: Alert and oriented 3. No focal weakness. - Constitutional Vitals: Temp Pulse Resp BP Pulse Ox 99.1 F 76 24 117/83 91 06/12/17 11:41 06/12/17 08:55 06/12/17 11:41 06/12/17 11:41 06/12/17 07:31 General appearance: Present: no acute distress Results - Labs CBC & Chem 7: 06/12/17 09:05 06/12/17 09:05 Labs: Laboratory Last Values WBC 7.2 K/mm3 (4.5-11.0) 06/12/17 09:05 RBC 3.92 M/mm3 (3.65-5.03) 06/12/17 09:05 Hgb 12.3 gm/dl (11.8-15.2) 06/12/17 09:05 Hct 36.8 % (35.5-45.6) 06/12/17 09:05 MCV 94 fl (84-94) 06/12/17 09:05 MCH 31 pg (28-32) 06/12/17 09:05 MCHC 33 % (32-34) 06/12/17 09:05 RDW 15.5 % (13.2-15.2) H 06/12/17 09:05 Plt Count 151 K/mm3 (140-440) 06/12/17 09:05 Lymph % (Auto) 17.4 % (13.4-35.0) 06/12/17 09:05 [place] % (Auto) 11.2 % (0.0-7.3) H 06/12/17 09:05 Eos % (Auto) 0.3 % (0.0-4.3) 06/12/17 09:05 Baso % (Auto) 0.8 % (0.0-1.8) 06/12/17 09:05 Lymph # 1.2 K/mm3 (1.2-5.4) 06/12/17 09:05 [place] # 0.8 K/mm3 (0.0-0.8) 06/12/17 09:05 Eos # 0.0 K/mm3 (0.0-0.4) 06/12/17 09:05 Baso # 0.1 K/mm3 (0.0-0.1) 06/12/17 09:05 Add Manual Diff Complete 06/10/17 00:47 Total Counted 100 06/10/17 00:47 Seg Neutrophils % 70.3 % (40.0-70.0) H 06/12/17 09:05 Seg Neuts % (Manual) 51.0 % (40.0-70.0) 06/10/17 00:47 Band Neutrophils % 26.0 % 06/10/17 00:47 Lymphocytes % (Manual) 9.0 % (13.4-35.0) L 01 00:47 Reactive Lymphs % (Man) 0 % 06/10/17 00:47 Monocytes % (Manual) 5.0 % (0.0-7.3) 06/10/17 00:47 Eosinophils % (Manual) 0 % (0.0-4.3) 06/10/17 00:47 Basophils % (Manual) 0 % (0.0-1.8) 06/10/17 00:47 Metamyelocytes % 9.0 % 06/10/17 00:47 Myelocytes % 0 % 06/10/17 00:47 Promyelocytes % 0 % 06/10/17 00:47 Blast Cells % 0 % 06/10/17 00:47 Nucleated RBC % Not Reportable 06/10/17 00:47 Seg Neutrophils # 5.0 K/mm3 (1.8-7.7) 06/12/17 09:05 Seg Neutrophils # Man 10.9 K/mm3 (1.8-7.7) H 06/10/17 00:47 Band Neutrophils # 5.5 K/mm3 06/10/17 00:47 Lymphocytes # (Manual) 1.9 K/mm3 (1.2-5.4) 06/10/17 00:47 Abs React Lymphs (Man) 0.0 K/mm3 06/10/17 00:47 Monocytes # (Manual) 1.1 K/mm3 (0.0-0.8) H 06/10/17 00:47 Eosinophils # (Manual) 0.0 K/mm3 (0.0-0.4) 06/10/17 00:47 Basophils # (Manual) 0.0 K/mm3 (0.0-0.1) 06/10/17 00:47 Metamyelocytes # 1.9 K/mm3 06/10/17 00:47 Myelocytes # 0.0 K/mm3 06/10/17 00:47 Promyelocytes # 0.0 K/mm3 06/10/17 00:47 Blast Cells # 0.0 K/mm3 06/10/17 00:47 WBC Morphology Not Reportable 06/10/17 00:47 Hypersegmented Neuts Not Reportable 06/10/17 00:47 Hyposegmented Neuts Not Reportable 06/10/17 00:47 Hypogranular Neuts Not Reportable 06/10/17 00:47 Smudge Cells Not Reportable 06/10/17 00:47 Toxic Granulation Not Reportable 06/10/17 00:47 Toxic Vacuolation Not Reportable 06/10/17 00:47 Dohle Bodies Not Reportable 06/10/17 00:47 Pelger-Huet Anomaly Not Reportable 06/10/17 00:47 Dolly Rods Not Reportable 06/10/17 00:47 Platelet Estimate Appears normal 06/10/17 00:47 Clumped Platelets Not Reportable 06/10/17 00:47 Plt Clumps, EDTA Not Reportable 06/10/17 00:47 Large Platelets Not Reportable 06/10/17 00:47 Giant Platelets Not Reportable 06/10/17 00:47 Platelet Satelliting Not Reportable 06/10/17 00:47 Plt Morphology Comment Not Reportable 06/10/17 00:47 RBC Morphology Not Reportable 06/10/17 00:47 Dimorphic RBCs Not Reportable 06/10/17 00:47 Polychromasia Not Reportable 06/10/17 00:47 Hypochromasia Few 06/10/17 00:47 Poikilocytosis Not Reportable 06/10/17 00:47 Anisocytosis 1+ 06/10/17 00:47 Microcytosis Not Reportable 06/10/17 00:47 Macrocytosis Not Reportable 06/10/17 00:47 Spherocytes Not Reportable 06/10/17 00:47 Pappenheimer Bodies Not Reportable 06/10/17 00:47 Sickle Cells Not Reportable 06/10/17 00:47 Target Cells Not Reportable 06/10/17 00:47 Tear Drop Cells Not Reportable 06/10/17 00:47 Ovalocytes Not Reportable 06/10/17 00:47 Helmet Cells Not Reportable 06/10/17 00:47 [place] Bodies Not Reportable 06/10/17 00:47 [place] Rings Not Reportable 06/10/17 00:47 Meryl Cells Not Reportable 06/10/17 00:47 Bite Cells Not Reportable 06/10/17 00:47 Crenated Cell Not Reportable 06/10/17 00:47 Elliptocytes Not Reportable 06/10/17 00:47 Acanthocytes (Spur) Not Reportable 06/10/17 00:47 Rouleaux Not Reportable 06/10/17 00:47 Hemoglobin C Crystals Not Reportable 06/10/17 00:47 Schistocytes Not Reportable 06/10/17 00:47 Malaria parasites Not Reportable 06/10/17 00:47 Antwan Bodies Not Reportable 06/10/17 00:47 Hem Pathologist Commnt No 06/10/17 00:47 PT 20.4 Sec. (12.2-14.9) H 06/12/17 07:19 INR 1.64 (0.87-1.13) H 06/12/17 07:19 APTT 24.0 Sec. (24.2-36.6) L 06/10/17 00:47 D-Dimer 4355.41 ng/mlDDU (0-234) H 06/10/17 21:45 POC ABG pH 7.443 (7.35-7.45) 06/10/17 00:35 POC ABG pCO2 34.8 (35-45) L 06/10/17 00:35 POC ABG pO2 56 (80-105) L 06/10/17 00:35 POC ABG HCO3 23.8 06/10/17 00:35 POC ABG Total CO2 25 06/10/17 00:35 POC ABG O2 Sat 90 06/10/17 00:35 POC ABG Base Excess 0 06/10/17 00:35 FiO2 100 % 06/10/17 00:35 Sodium 141 mmol/L (137-145) 06/12/17 09:05 Potassium 4.2 mmol/L (3.6-5.0) 06/12/17 09:05 Chloride 99.3 mmol/L (98-107) 06/12/17 09:05 Carbon Dioxide 27 mmol/L (22-30) 06/12/17 09:05 Anion Gap 19 mmol/L 06/12/17 09:05 BUN 39 mg/dL (9-20) H 06/12/17 09:05 Creatinine 1.8 mg/dL (0.8-1.5) H 06/12/17 09:05 Estimated GFR 49 ml/min 06/12/17 09:05 BUN/Creatinine Ratio 22 % 06/12/17 09:05 Glucose 78 mg/dL (75-100) 06/12/17 09:05 POC Glucose 107 (70-105) H 06/11/17 20:45 Lactic Acid 1.70 mmol/L (0.7-2.0) 06/10/17 02:47 Calcium 8.6 mg/dL (8.4-10.2) 06/12/17 09:05 Total Bilirubin 0.50 mg/dL (0.1-1.2) 06/10/17 00:47 AST 43 units/L (5-40) H 06/10/17 00:47 ALT 30 units/L (7-56) 06/10/17 00:47 Alkaline Phosphatase 119 units/L (35-129) 06/10/17 00:47 Total Creatine Kinase 102 units/L (55-170) 06/10/17 21:45 CK-MB (CK-2) 2.2 ng/mL (0.0-4.0) 06/10/17 21:45 CK-MB (CK-2) Rel Index 2.1 (0-4) 06/10/17 21:45 Troponin T 0.063 ng/mL (0.00-0.029) H D 06/10/17 21:45 NT-Pro-B Natriuret Pep 3826 pg/mL (0-900) H 06/10/17 02:40 Total Protein 7.2 g/dL (6.3-8.2) 06/10/17 00:47 Albumin 3.5 g/dL (3.9-5) L 06/10/17 00:47 Albumin/Globulin Ratio 0.9 % 06/10/17 00:47 Triglycerides 155 mg/dL (2-149) H 06/10/17 00:47 Cholesterol 175 mg/dL (50-199) 06/10/17 00:47 LDL Cholesterol Direct 83 mg/dL (50-130) 06/10/17 00:47 HDL Cholesterol 61 mg/dL (40-59) H 06/10/17 00:47 Cholesterol/HDL Ratio 2.86 % 06/10/17 00:47 Urine Color Yellow (Yellow) 06/11/17 11:39 Urine Turbidity Cloudy (Clear) 06/11/17 11:39 Urine pH 5.0 (5.0-7.0) 06/11/17 11:39 Ur Specific [place] 1.016 (1.003-1.030) 06/11/17 11:39 Urine Protein 30 mg/dl mg/dL (Negative) 06/11/17 11:39 Urine Glucose (UA) Neg mg/dL (Negative) 06/11/17 11:39 Urine Ketones Neg mg/dL (Negative) 06/11/17 11:39 Urine Blood Neg (Negative) 06/11/17 11:39 Urine Nitrite Neg (Negative) 06/11/17 11:39 Urine Bilirubin Neg (Negative) 06/11/17 11:39 Urine Urobilinogen 2.0 mg/dL (<2.0) 06/11/17 11:39 Ur Leukocyte Esterase Mod (Negative) 06/11/17 11:39 Urine WBC (Auto) 31.0 /HPF (0.0-6.0) H 06/11/17 11:39 Urine RBC (Auto) 4.0 /HPF (0.0-6.0) 06/11/17 11:39 U Epithel Cells (Auto) 1.0 /HPF (0-13.0) 06/11/17 11:39 Urine Bacteria (Auto) 1+ /HPF (Negative) 06/11/17 11:39 Digoxin 0.8 ng/mL (0.9-2.0) L 06/11/17 23:32
[2017-06-12] MEDS ORDERED: VANCOMYCIN PHARMACY TO DOSE IV SCH (16:00)
[2017-06-12] MEDS ORDERED: VANCOMYCIN VIAL 1,000 MG in NACL 0.9% 100 ML IV SCH (16:00)
[2017-06-12] MEDS ORDERED: VANCOMYCIN 1,750 MG in NACL 0.9% 500 ML 500 ML IV SCH (17:00)
[2017-06-12] MEDS: ZOSYN/NS 4.5GM/100ML 4.5 GM/100 ML VIAL IV SCH ×2 (17:15→21:30)
[2017-06-12] MEDS: COREG PO SCH ×2 (17:16→21:15)
[2017-06-12] MEDS: COUMADIN PO SCH (21:13)
[2017-06-12] MEDS: PRAVACHOL PO SCH (21:14)
[2017-06-13] MEDS: ZOSYN/NS 4.5GM/100ML 4.5 GM/100 ML VIAL IV SCH ×3 (05:36→22:07)
[2017-06-13] MEDS: GLUCOTROL PO SCH ×2 (09:16→22:06)
[2017-06-13] MEDS: NOVOLOG SUB-Q SCH ×4 (09:16→22:07)
--- NOTE | 2017-06-13 09:36 | Progress Note ---
Assessment and Plan Assessment: Syncope VT vs. afib with abberancy-->shocked x 3 (06/11/17) Acute on chronic HFREF EF 10-15% Hypotension-->improved with IVF Fever/?bacteremia (1/2 positive blood cultures) Chronic atrial fibrillation-->currently controlled ventricular rate Cardiomyopathy EF 10-15% Hypertension Hyperlipidemia Diabetes Chronic kidney disease NHUNG on CPAP Morbid obesity PLAN: Patient remains in afib with CVR. Per mony Arriaga to proceed with ICD procedure at [facility]. Dr. Galan to see patient this afternoon. Appreciate ID input. The patient has been seen in conjunction with Dr. Woodruff who agrees with the assessment and plan of care. Subjective Date of service: 06/13/17 Principal diagnosis: syncope, vtach vs. afib with abberancy Interval history: The patient is resting in bed. No new complaints. Atrial fibrillation with controlled ventricular rate on the monitor. Objective Last Vital Signs Temp 98.4 F 06/13/17 09:41 Pulse 76 06/13/17 09:41 Resp 18 06/13/17 09:41 BP 118/79 06/13/17 07:29 Pulse Ox 93 06/13/17 09:41 - Physical Examination General: No Apparent Distress HEENT: Positive: PERRL, Normocephaly, Mucus Membranes Moist Neck: Positive: neck supple, trachea midline Cardiac: Positive: irregularly irregular, S1/S2 Lungs: Positive: clear to auscultation Neuro: Positive: Grossly Intact Abdomen: Positive: Soft, Active Bowel Sounds. Negative: Tender Skin: Negative: Rash Extremities: Present: +1 Edema - Labs and Meds Comprehensive Metabolic Panel 06/12/17 Range/Units 09:05 Sodium 141 (137-145) mmol/L Potassium 4.2 (3.6-5.0) mmol/L Chloride 99.3 (98-107) mmol/L Carbon Dioxide 27 (22-30) mmol/L BUN 39 H (9-20) mg/dL Creatinine 1.8 H (0.8-1.5) mg/dL Glucose 78 (75-100) mg/dL Calcium 8.6 (8.4-10.2) mg/dL - Imaging and Cardiology EKG: image reviewed Echo: report reviewed (EF 10-15%) - Telemetry EKG Rhythm: Atrial Fibrillation
[2017-06-13] MEDS: CORDARONE PO SCH ×2 (09:55→22:02)
[2017-06-13] MEDS: DELTASONE PO SCH (09:55)
[2017-06-13] MEDS: ZYLOPRIM PO SCH (09:55)
[2017-06-13] MEDS: NEURONTIN PO SCH ×2 (09:55→22:02)
[2017-06-13] MEDS: COREG PO SCH ×2 (09:55→22:03)
[2017-06-13] MEDS: VANCOMYCIN 1,750 MG in NACL 0.9% 500 ML 500 ML IV SCH ×2 (09:57→21:57)
[2017-06-13 11:03] LABS: Basophils # (Auto) 0.1 K/mm3 (0.0-0.1); Basophils % (Auto) 0.8 % (0.0-1.8); Eosinophils # (Auto) 0.1 K/mm3 (0.0-0.4); Eosinophils % (Auto) 0.8 % (0.0-4.3); Hematocrit 38.6 % (35.5-45.6); Hemoglobin 12.8 gm/dl (11.8-15.2); Lymphocytes # (Auto) 1.8 K/mm3 (1.2-5.4); Lymphocytes % (Auto) 20.3 % (13.4-35.0); Mean Corpuscular HGB Conc 33 % (32-34); Mean Corpuscular Hemoglobin 31 pg (28-32); Mean Corpuscular Volume 93 fl (84-94); Monocytes # (Auto) 1.2 K/mm3 (0.0-0.8); Monocytes % (Auto) 13.7 % (0.0-7.3); Platelet Count 165 K/mm3 (140-440); Red Blood Count 4.13 M/mm3 (3.65-5.03); Red Cell Distribution Width 15.7 % (13.2-15.2)
[2017-06-13 11:15] LABS: INR 1.84 (0.87-1.13)
--- NOTE | 2017-06-13 12:23 | Progress Note ---
Assessment and Plan Assessment: 1) SIRS: still low grade fever, leukocytosis better. Etiology unclear ? UTI ? bacteremia. CRP=17 2) Syncopal episode at home 3) Coag neg Staph in blood cultures ? real vs a contaminant 4) V tach vs. afib with abberancy s/p shocked x 3 and started on an amiodarone gtt. Echo showed EF 10-15% 5) Chronic systolic heart failure 6) Afib on coumadin 7) Hypertension 8) Diabetes 9) CKD 10) NHUNG on CPAP Plan: -f/u repeat blood cultures, urine culture -hold off AICD placement -continue zosyn and vanco renally dosed Thank you Dr Monzon for your consultation, will follow up with you. Kiara Sampson MD Infectious Diseases Specialist [facility] [phone] Subjective Date of service: 06/13/17 Principal diagnosis: syncope, vtach vs. afib with abberancy Interval history: Feels better, tmax 100.9, no complaints Microbiology: Blood cultures: 1/2 Coag neg 2 of 2 1/ ngtd Urine cultures: Current Antimicrobials: Zosyn vanco Previous Antimicrobials: Objective - Exam Narrative Exam: General appearance: Alert in NAD, conversant morbidly obese Eyes: anicteric sclerae, moist conjunctivae; no lid-lag; PERRLA HENT: Atraumatic; oropharynx clear Neck: Trachea midline; supple, no thyromegaly or lymphadenopathy Lungs: CTA CV: RRR Abdomen: Soft, extensive pannus Extremities: cee leg edema Skin: Normal temperature, turgor and texture; no rash, ulcers or subcutaneous nodules Psych: Appropriate affect, alert and oriented to person, place and time. Neuro: alert and oriented x 3. Moving all extermities Lines: No CVL / PICC - Constitutional Vitals: Vital Signs Temp Pulse Resp BP Pulse Ox 98.4 F 63 18 118/79 93 06/13/17 09:41 06/13/17 10:00 06/13/17 09:41 06/13/17 07:29 06/13/17 09:41 Temperature -Last 24 Hours Temperature 98.4 F Temperature 98.7 F Temperature 97.3 F Temperature 97.8 F Temperature 97.6 F Temperature 97.6 F - Labs CBC & Chem 7: 06/13/17 10:33 06/13/17 10:33 Labs: Abnormal lab results 06/12/17 06/12/17 06/12/17 Range/Units 07:36 11:44 16:52 RDW (13.2-15.2) % [place] % (Auto) (0.0-7.3) % [place] # (0.0-0.8) K/mm3 PT (12.2-14.9) Sec. INR (0.87-1.13) Chloride (98-107) mmol/L BUN (9-20) mg/dL Glucose (75-100) mg/dL POC Glucose 55 L 56 L (70-105) C-Reactive Protein 17.00 H (0.00-1.30) mg/dL 06/12/17 06/13/17 06/13/17 Range/Units 17:31 10:33 10:33 RDW 15.7 H (13.2-15.2) % [place] % (Auto) 13.7 H (0.0-7.3) % [place] # 1.2 H (0.0-0.8) K/mm3 PT 22.3 H (12.2-14.9) Sec. INR 1.84 H (0.87-1.13) Chloride (98-107) mmol/L BUN (9-20) mg/dL Glucose (75-100) mg/dL POC Glucose 123 H (70-105) C-Reactive Protein (0.00-1.30) mg/dL 06/13/17 Range/Units 10:33 RDW (13.2-15.2) % [place] % (Auto) (0.0-7.3) % [place] # (0.0-0.8) K/mm3 PT (12.2-14.9) Sec. INR (0.87-1.13) Chloride 96.8 L (98-107) mmol/L BUN 34 H (9-20) mg/dL Glucose 178 H (75-100) mg/dL POC Glucose (70-105) C-Reactive Protein (0.00-1.30) mg/dL
--- NOTE | 2017-06-13 15:32 | Progress Note ---
Assessment and Plan Assessment and plan: 51-year-old -[place] with past medical history significant for morbid obesity, congestive heart failure, sleep apnea, on CPAP as admitted yesterday after the patient has syncopal episode Chronic respiratory failure - On CPAP Syncopal episode - Secondary to V. fib versus A. fib with aberrancy - Patient was shocked 3 times yesterday - Patient is currently on amiodarone - Patient needs ICD - ID consulted and recommended held ICD -Cardiology consult apprecitaed Atrial fibrillation - Continue warfarin Acute on chronic systolic CHF - Patient needs ICD before discharge - EF 10-15% Obstructive sleep apnea - Continue CPAP SIRS - Evidenced by leukocytosis and fever - Patient is on IV Zosyn and vancomycin - ID consult appreciated - 06/10 blood culture is positive for coagulase negative staph aureus Hypotension - Resolved CKD DVT prophylaxis - continue warfarin Disposition - I have discussed with [place] physician about the management plan, the patient need for ICD placement. They agreed to keep the patient at our service. History Interval history: Patient was seen and evaluated this morning, patient denied shortness of breath , syncopal episode after admission, chest pain. No fever episode over the last 24 hours, patient is currently on CPAP. Hospitalist Physical - Physical exam Narrative exam: Not in cardiopulmonary distress. Patient is on BiPAP continuously. The patient is morbidly obese. Vital signs as documented. Head exam is unremarkable. No scleral icterus . Neck is without jugular venous distension, thyromegaly, or carotid bruits. Lungs are clear to auscultation. Cardiac exam reveals regular rate and Rhythm. Abdominal exam reveals obese abdomen. Extremities are nonedematous and both femoral and pedal pulses are normal. ELEVATOR CONSTRUCTOR ELECTRIC: Alert and oriented 3. No focal weakness. - Constitutional Vitals: Temp Pulse Resp BP Pulse Ox 98.4 F 63 18 118/79 93 06/13/17 09:41 06/13/17 10:00 06/13/17 09:41 06/13/17 07:29 06/13/17 09:41 General appearance: Present: no acute distress Results - Labs CBC & Chem 7: 06/13/17 10:33 06/13/17 10:33 Labs: Laboratory Last Values WBC 8.8 K/mm3 (4.5-11.0) 06/13/17 10:33 RBC 4.13 M/mm3 (3.65-5.03) 06/13/17 10:33 Hgb 12.8 gm/dl (11.8-15.2) 06/13/17 10:33 Hct 38.6 % (35.5-45.6) 06/13/17 10:33 MCV 93 fl (84-94) 06/13/17 10:33 MCH 31 pg (28-32) 06/13/17 10:33 MCHC 33 % (32-34) 06/13/17 10:33 RDW 15.7 % (13.2-15.2) H 06/13/17 10:33 Plt Count 165 K/mm3 (140-440) 06/13/17 10:33 Lymph % (Auto) 20.3 % (13.4-35.0) 06/13/17 10:33 [place] % (Auto) 13.7 % (0.0-7.3) H 06/13/17 10:33 Eos % (Auto) 0.8 % (0.0-4.3) 06/13/17 10:33 Baso % (Auto) 0.8 % (0.0-1.8) 06/13/17 10:33 Lymph # 1.8 K/mm3 (1.2-5.4) 06/13/17 10:33 [place] # 1.2 K/mm3 (0.0-0.8) H 06/13/17 10:33 Eos # 0.1 K/mm3 (0.0-0.4) 06/13/17 10:33 Baso # 0.1 K/mm3 (0.0-0.1) 06/13/17 10:33 Add Manual Diff Complete 06/10/17 00:47 Total Counted 100 06/10/17 00:47 Seg Neutrophils % 64.4 % (40.0-70.0) 06/13/17 10:33 Seg Neuts % (Manual) 51.0 % (40.0-70.0) 06/10/17 00:47 Band Neutrophils % 26.0 % 06/10/17 00:47 Lymphocytes % (Manual) 9.0 % (13.4-35.0) L 06/10/17 00:47 Reactive Lymphs % (Man) 0 % 06/10/17 00:47 Monocytes % (Manual) 5.0 % (0.0-7.3) 06/10/17 00:47 Eosinophils % (Manual) 0 % (0.0-4.3) 06/10/17 00:47 Basophils % (Manual) 0 % (0.0-1.8) 06/10/17 00:47 Metamyelocytes % 9.0 % 06/10/17 00:47 Myelocytes % 0 % 06/10/17 00:47 Promyelocytes % 0 % 06/10/17 00:47 Blast Cells % 0 % 06/10/17 00:47 Nucleated RBC % Not Reportable 06/10/17 00:47 Seg Neutrophils # 5.7 K/mm3 (1.8-7.7) 06/13/17 10:33 Seg Neutrophils # Man 10.9 K/mm3 (1.8-7.7) H 06/10/17 00:47 Band Neutrophils # 5.5 K/mm3 06/10/17 00:47 Lymphocytes # (Manual) 1.9 K/mm3 (1.2-5.4) 06/10/17 00:47 Abs React Lymphs (Man) 0.0 K/mm3 06/10/17 00:47 Monocytes # (Manual) 1.1 K/mm3 (0.0-0.8) H 06/10/17 00:47 Eosinophils # (Manual) 0.0 K/mm3 (0.0-0.4) 06/10/17 00:47 Basophils # (Manual) 0.0 K/mm3 (0.0-0.1) 06/10/17 00:47 Metamyelocytes # 1.9 K/mm3 06/10/17 00:47 Myelocytes # 0.0 K/mm3 06/10/17 00:47 Promyelocytes # 0.0 K/mm3 06/10/17 00:47 Blast Cells # 0.0 K/mm3 06/10/17 00:47 WBC Morphology Not Reportable 06/10/17 00:47 Hypersegmented Neuts Not Reportable 06/10/17 00:47 Hyposegmented Neuts Not Reportable 06/10/17 00:47 Hypogranular Neuts Not Reportable 06/10/17 00:47 Smudge Cells Not Reportable 06/10/17 00:47 Toxic Granulation Not Reportable 06/10/17 00:47 Toxic Vacuolation Not Reportable 06/10/17 00:47 Dohle Bodies Not Reportable 06/10/17 00:47 Pelger-Huet Anomaly Not Reportable 06/10/17 00:47 Dolly Rods Not Reportable 06/10/17 00:47 Platelet Estimate Appears normal 06/10/17 00:47 Clumped Platelets Not Reportable 06/10/17 00:47 Plt Clumps, EDTA Not Reportable 06/10/17 00:47 Large Platelets Not Reportable 06/10/17 00:47 Giant Platelets Not Reportable 06/10/17 00:47 Platelet Satelliting Not Reportable 06/10/17 00:47 Plt Morphology Comment Not Reportable 06/10/17 00:47 RBC Morphology Not Reportable 06/10/17 00:47 Dimorphic RBCs Not Reportable 06/10/17 00:47 Polychromasia Not Reportable 06/10/17 00:47 Hypochromasia Few 06/10/17 00:47 Poikilocytosis Not Reportable 06/10/17 00:47 Anisocytosis 1+ 06/10/17 00:47 Microcytosis Not Reportable 06/10/17 00:47 Macrocytosis Not Reportable 06/10/17 00:47 Spherocytes Not Reportable 06/10/17 00:47 Pappenheimer Bodies Not Reportable 06/10/17 00:47 Sickle Cells Not Reportable 06/10/17 00:47 Target Cells Not Reportable 06/10/17 00:47 Tear Drop Cells Not Reportable 06/10/17 00:47 Ovalocytes Not Reportable 06/10/17 00:47 Helmet Cells Not Reportable 06/10/17 00:47 [place] Bodies Not Reportable 06/10/17 00:47 [place]ida Rings Not Reportable 06/10/17 00:47 Meryl Cells Not Reportable 06/10/17 00:47 Bite Cells Not Reportable 06/10/17 00:47 Crenated Cell Not Reportable 06/10/17 00:47 Elliptocytes Not Reportable 06/10/17 00:47 Acanthocytes (Spur) Not Reportable 06/10/17 00:47 Rouleaux Not Reportable 06/10/17 00:47 Hemoglobin C Crystals Not Reportable 06/10/17 00:47 Schistocytes Not Reportable 06/10/17 00:47 Malaria parasites Not Reportable 06/10/17 00:47 Antwan Bodies Not Reportable 06/10/17 00:47 Hem Pathologist Commnt No 06/10/17 00:47 PT 22.3 Sec. (12.2-14.9) H 06/13/17 10:33 INR 1.84 (0.87-1.13) H 06/13/17 10:33 APTT 24.0 Sec. (24.2-36.6) L 06/10/17 00:47 D-Dimer 4355.41 ng/mlDDU (0-234) H 06/10/17 21:45 POC ABG pH 7.443 (7.35-7.45) 06/10/17 00:35 POC ABG pCO2 34.8 (35-45) L 06/10/17 00:35 POC ABG pO2 56 (80-105) L 06/10/17 00:35 POC ABG HCO3 23.8 06/10/17 00:35 POC ABG Total CO2 25 06/10/17 00:35 POC ABG O2 Sat 90 06/10/17 00:35 POC ABG Base Excess 0 06/10/17 00:35 FiO2 100 % 06/10/17 00:35 Sodium 140 mmol/L (137-145) 06/13/17 10:33 Potassium 4.5 mmol/L (3.6-5.0) 06/13/17 10:33 Chloride 96.8 mmol/L (98-107) L 06/13/17 10:33 Carbon Dioxide 26 mmol/L (22-30) 06/13/17 10:33 Anion Gap 22 mmol/L 06/13/17 10:33 BUN 34 mg/dL (9-20) H 06/13/17 10:33 Creatinine 1.5 mg/dL (0.8-1.5) 06/13/17 10:33 Estimated GFR 60 ml/min 06/13/17 10:33 BUN/Creatinine Ratio 23 % 06/13/17 10:33 Glucose 178 mg/dL (75-100) H 06/13/17 10:33 POC Glucose 104 (70-105) 06/12/17 21:23 Lactic Acid 1.70 mmol/L (0.7-2.0) 06/10/17 02:47 Calcium 9.0 mg/dL (8.4-10.2) 06/13/17 10:33 Total Bilirubin 0.50 mg/dL (0.1-1.2) 06/10/17 00:47 AST 43 units/L (5-40) H 06/10/17 00:47 ALT 30 units/L (7-56) 06/10/17 00:47 Alkaline Phosphatase 119 units/L (35-129) 06/10/17 00:47 Total Creatine Kinase 102 units/L (55-170) 06/10/17 21:45 CK-MB (CK-2) 2.2 ng/mL (0.0-4.0) 06/10/17 21:45 CK-MB (CK-2) Rel Index 2.1 (0-4) 06/10/17 21:45 Troponin T 0.063 ng/mL (0.00-0.029) H D 06/10/17 21:45 C-Reactive Protein 17.00 mg/dL (0.00-1.30) H 06/12/17 16:52 NT-Pro-B Natriuret Pep 3826 pg/mL (0-900) H 06/10/17 02:40 Total Protein 7.2 g/dL (6.3-8.2) 06/10/17 00:47 Albumin 3.5 g/dL (3.9-5) L 06/10/17 00:47 Albumin/Globulin Ratio 0.9 % 06/10/17 00:47 Triglycerides 155 mg/dL (2-149) H 06/10/17 00:47 Cholesterol 175 mg/dL (50-199) 06/10/17 00:47 LDL Cholesterol Direct 83 mg/dL (50-130) 06/10/17 00:47 HDL Cholesterol 61 mg/dL (40-59) H 06/10/17 00:47 Cholesterol/HDL Ratio 2.86 % 06/10/17 00:47 Urine Color Yellow (Yellow) 06/11/17 11:39 Urine Turbidity Cloudy (Clear) 06/11/17 11:39 Urine pH 5.0 (5.0-7.0) 06/11/17 11:39 Ur [address] [place] 1.016 (1.003-1.030) 06/11/17 11:39 Urine Protein 30 mg/dl mg/dL (Negative) 06/11/17 11:39 Urine Glucose (UA) Neg mg/dL (Negative) 06/11/17 11:39 Urine Ketones Neg mg/dL (Negative) 06/11/17 11:39 Urine Blood Neg (Negative) 06/11/17 11:39 Urine Nitrite Neg (Negative) 06/11/17 11:39 Urine Bilirubin Neg (Negative) 06/11/17 11:39 Urine Urobilinogen 2.0 mg/dL (<2.0) 06/11/17 11:39 Ur Leukocyte Esterase Mod (Negative) 06/11/17 11:39 Urine WBC (Auto) 31.0 /HPF (0.0-6.0) H 06/11/17 11:39 Urine RBC (Auto) 4.0 /HPF (0.0-6.0) 06/11/17 11:39 U Epithel Cells (Auto) 1.0 /HPF (0-13.0) 06/11/17 11:39 Urine Bacteria (Auto) 1+ /HPF (Negative) 06/11/17 11:39 Digoxin 0.8 ng/mL (0.9-2.0) L 06/11/17 23:32
[2017-06-13] MEDS: COUMADIN PO SCH (17:12)
[2017-06-13] MEDS: PRAVACHOL PO SCH (22:03)
[2017-06-14] MEDS: ZOSYN/NS 4.5GM/100ML 4.5 GM/100 ML VIAL IV SCH ×4 (01:54→22:52)
[2017-06-14 05:44] LABS: Basophils # (Auto) 0.1 K/mm3 (0.0-0.1); Basophils % (Auto) 0.7 % (0.0-1.8); Eosinophils # (Auto) 0.1 K/mm3 (0.0-0.4); Eosinophils % (Auto) 0.9 % (0.0-4.3); Hematocrit 36.3 % (35.5-45.6); Hemoglobin 12.2 gm/dl (11.8-15.2); Lymphocytes # (Auto) 2.1 K/mm3 (1.2-5.4); Lymphocytes % (Auto) 29.3 % (13.4-35.0); Mean Corpuscular HGB Conc 34 % (32-34); Mean Corpuscular Hemoglobin 31 pg (28-32); Mean Corpuscular Volume 93 fl (84-94); Monocytes # (Auto) 0.9 K/mm3 (0.0-0.8); Monocytes % (Auto) 13.3 % (0.0-7.3); Platelet Count 173 K/mm3 (140-440); Red Cell Distribution Width 15.6 % (13.2-15.2)
[2017-06-14 06:04] LABS: INR 2.03 (0.87-1.13)
[2017-06-14 06:30] LABS: Calcium 8.6 mg/dL (8.4-10.2)
[2017-06-14] MEDS: NOVOLOG SUB-Q SCH ×4 (07:30→22:52)
--- NOTE | 2017-06-14 09:21 | Progress Note ---
Assessment and Plan remains afebrile. wbc wnl afib hfref cardiac status stable at present. inr 2.03 awaiting aicd implantation when ok with inf disease continue current mgt Subjective Date of service: 06/14/17 Principal diagnosis: syncope, vtach vs. afib with abberancy Interval history: no cp or sob. no complaints Objective Vital Signs Temp Pulse Resp BP BP Pulse Ox 06/14/17 07:32 59 L 20 119/72 93 06/14/17 04:29 97.3 F L 57 L 20 119/74 98 06/14/17 01:30 80 20 96 06/14/17 00:28 97.5 F L 66 22 131/97 95 06/13/17 22:00 50 L 18 96 06/13/17 19:33 98.5 F 67 20 122/72 93 06/13/17 17:21 98.2 F 65 20 112/94 94 06/13/17 15:28 98.2 F 68 20 112/94 93 06/13/17 12:30 86 20 96 06/13/17 10:00 63 95 06/13/17 09:41 98.4 F 76 18 93 - Physical Examination General: No Apparent Distress HEENT: Positive: PERRL, Normocephaly, Mucus Membranes Moist Neck: Positive: neck supple, trachea midline Cardiac: Positive: irregularly irregular Lungs: Positive: clear to auscultation Neuro: Positive: Grossly Intact Abdomen: Positive: Soft, Active Bowel Sounds. Negative: Tender Skin: Negative: Rash Extremities: Present: +1 Edema - Labs and Meds Coagulation 06/13/17 06/14/17 Range/Units 10:33 05:16 PT 22.3 H 24.1 H (12.2-14.9) Sec. INR 1.84 H 2.03 H (0.87-1.13) CBC 06/13/17 06/14/17 Range/Units 10:33 05:16 WBC 8.8 7.1 (4.5-11.0) K/mm3 RBC 4.13 3.90 (3.65-5.03) M/mm3 Hgb 12.8 12.2 (11.8-15.2) gm/dl Hct 38.6 36.3 (35.5-45.6) % Plt Count 165 173 (140-440) K/mm3 Lymph # 1.8 2.1 (1.2-5.4) K/mm3 [place] # 1.2 H 0.9 H (0.0-0.8) K/mm3 Eos # 0.1 0.1 (0.0-0.4) K/mm3 Baso # 0.1 0.1 (0.0-0.1) K/mm3 Comprehensive Metabolic Panel 06/13/17 06/14/17 Range/Units 10:33 05:16 Sodium 140 142 (137-145) mmol/L Potassium 4.5 4.3 (3.6-5.0) mmol/L Chloride 96.8 L 100.1 (98-107) mmol/L Carbon Dioxide 26 25 (22-30) mmol/L BUN 34 H 33 H (9-20) mg/dL Creatinine 1.5 1.5 (0.8-1.5) mg/dL Glucose 178 H 161 H (75-100) mg/dL Calcium 9.0 8.6 (8.4-10.2) mg/dL - Imaging and Cardiology EKG: image reviewed Echo: report reviewed (EF 10-15%)
[2017-06-14] MEDS: CORDARONE PO SCH ×2 (10:45→22:51)
--- NOTE | 2017-06-14 11:37 | Progress Note ---
Assessment and Plan Assessment: 1) SIRS: resolved. Etiology unclear ? UTI ? bacteremia. CRP=17 2) Syncopal episode at home 3) Coag neg Staph in blood cultures ? real vs a contaminant. Blood cx + 2 of 2 bottles on 06/10, repeat blood cx on 06/12 negative so far. History of recent left AC PIV line infection at [facility] 4) V tach vs. afib with abberancy s/p shocked x 3 and started on an amiodarone gtt. Echo showed EF 10-15% 5) Chronic systolic heart failure 6) Afib on coumadin 7) Hypertension 8) Diabetes 9) CKD 10) NHUNG on CPAP 11) Presumed UTI -urine cx negative Plan: -f/u repeat blood cultures, urine culture -Ok to place AICD on 06/16 while on vancomycin and zosyn as long as repeat blood cx on 06/12 remain negative -continue zosyn and vanco renally dosed -upon discharge will continue vancomycin 1750 mg IV q 12 hours for 14 days from 06/12 until 06/25 -place a PICC line I will be off tomorrow covering over the phone Thank you Dr Monzon for your consultation, will follow up with you. Kiara Sampson MD Infectious Diseases Specialist [facility] ([facility] M [phone] O [phone] Subjective Date of service: 06/14/17 Principal diagnosis: syncope, vtach vs. afib with abberancy Interval history: Feels better, no fver, no complaints Microbiology: Blood cultures: 06/10 Coag neg 2 of 2 06/12 ngtd Urine cultures: Current Antimicrobials: Zosyn 06/12 vanco 06/12 Previous Antimicrobials: Objective - Exam Narrative Exam: General appearance: Alert in NAD, conversant morbidly obese Eyes: anicteric sclerae, moist conjunctivae; no lid-lag; PERRLA HENT: Atraumatic; oropharynx clear Neck: Trachea midline; supple, no thyromegaly or lymphadenopathy Lungs: CTA CV: RRR Abdomen: Soft, extensive pannus Extremities: cee leg edema Skin: Normal temperature, turgor and texture; no rash, ulcers or subcutaneous nodules Psych: Appropriate affect, alert and oriented to person, place and time. Neuro: alert and oriented x 3. Moving all extermities Lines: No CVL / PICC - Constitutional Vitals: Vital Signs Temp Pulse Resp BP Pulse Ox 97.2 F L 59 L 20 119/72 93 06/14/17 09:43 06/14/17 10:00 06/14/17 10:00 06/14/17 09:43 06/14/17 10:00 Temperature -Last 24 Hours Temperature 97.2 F Temperature 97.3 F Temperature 97.5 F Temperature 98.5 F Temperature 98.2 F Temperature 98.2 F - Labs CBC & Chem 7: 06/14/17 05:16 06/14/17 05:16 Labs: Abnormal lab results 06/13/17 06/13/17 06/13/17 Range/Units 11:27 15:37 22:09 RDW (13.2-15.2) % Rock % (Auto) (0.0-7.3) % [place] # (0.0-0.8) K/mm3 PT (12.2-14.9) Sec. INR (0.87-1.13) BUN (9-20) mg/dL Glucose (75-100) mg/dL POC Glucose 168 H 289 H 220 H (70-105) 06/14/17 06/14/17 06/14/17 Range/Units 05:16 05:16 05:16 RDW 15.6 H (13.2-15.2) % Rock % (Auto) 13.3 H (0.0-7.3) % [place] # 0.9 H (0.0-0.8) K/mm3 PT 24.1 H (12.2-14.9) Sec. INR 2.03 H (0.87-1.13) BUN 33 H (9-20) mg/dL Glucose 161 H (75-100) mg/dL POC Glucose (70-105)
[2017-06-14] MEDS: COREG PO SCH ×2 (11:49→22:51)
[2017-06-14] MEDS: GLUCOTROL PO SCH ×2 (11:49→23:00)
[2017-06-14] MEDS: DELTASONE PO SCH (11:49)
[2017-06-14] MEDS: NEURONTIN PO SCH ×2 (11:50→22:51)
[2017-06-14] MEDS: ZYLOPRIM PO SCH (11:50)
[2017-06-14] MEDS: VANCOMYCIN 1,750 MG in NACL 0.9% 500 ML 500 ML IV SCH ×2 (14:10→22:52)
--- NOTE | 2017-06-14 14:52 | Progress Note ---
Assessment and Plan Assessment and plan: 51-year-old -Micronesian with past medical history significant for morbid obesity, congestive heart failure, sleep apnea, on CPAP as admitted yesterday after the patient has syncopal episode Chronic respiratory failure - On CPAP Syncopal episode - Secondary to V. fib versus A. fib with aberrancy - Patient was shocked 3 times yesterday - Patient is currently on amiodarone - Patient needs ICD - ID consulted and recommended okay to place ICD on -Cardiology consult apprecitaed Atrial fibrillation - Continue warfarin Acute on chronic systolic CHF - Patient needs ICD before discharge - EF 10-15% Obstructive sleep apnea - Continue CPAP SIRS - Evidenced by leukocytosis and fever - Patient is on IV Zosyn and vancomycin - ID consult appreciated - 06/10 blood culture is positive for coagulase negative staph aureus, repeat blood cultures are negative Hypotension - Resolved CKD DVT prophylaxis - continue warfarin Disposition - I have discussed with [facility] physician about the management plan, the patient need for ICD placement. They agreed to keep the patient at our service. History Interval history: Patient was seen and evaluated this morning, patient denied shortness of breath , syncopal episode after admission, chest pain. No fever episode over the last 24 hours, patient is currently on CPAP. Hospitalist Physical - Physical exam Narrative exam: Not in cardiopulmonary distress. Patient is on BiPAP continuously. The patient is morbidly obese. Vital signs as documented. Head exam is unremarkable. No scleral icterus . Neck is without jugular venous distension, thyromegaly, or carotid bruits. Lungs are clear to auscultation. Cardiac exam reveals regular rate and Rhythm. Abdominal exam reveals obese abdomen. Extremities are nonedematous and both femoral and pedal pulses are normal. SECURITY SUPPORT ANALYST: Alert and oriented 3. No focal weakness. - Constitutional Vitals: Temp Pulse Resp BP Pulse Ox 97.3 F L 64 20 135/75 94 06/14/17 12:42 06/14/17 12:42 06/14/17 12:42 06/14/17 12:42 06/14/17 12:42 General appearance: Present: no acute distress Results - Labs CBC & Chem 7: 06/14/17 05:16 06/14/17 05:16 Labs: Laboratory Last Values WBC 7.1 K/mm3 (4.5-11.0) 06/14/17 05:16 RBC 3.90 M/mm3 (3.65-5.03) 06/14/17 05:16 Hgb 12.2 gm/dl (11.8-15.2) 06/14/17 05:16 Hct 36.3 % (35.5-45.6) 06/14/17 05:16 MCV 93 fl (84-94) 06/14/17 05:16 MCH 31 pg (28-32) 06/14/17 05:16 MCHC 34 % (32-34) 06/14/17 05:16 RDW 15.6 % (13.2-15.2) H 06/14/17 05:16 Plt Count 173 K/mm3 (140-440) 06/14/17 05:16 Lymph % (Auto) 29.3 % (13.4-35.0) 06/14/17 05:16 [place] % (Auto) 13.3 % (0.0-7.3) H 06/14/17 05:16 Eos % (Auto) 0.9 % (0.0-4.3) 06/14/17 05:16 Baso % (Auto) 0.7 % (0.0-1.8) 06/14/17 05:16 Lymph # 2.1 K/mm3 (1.2-5.4) 06/14/17 05:16 [place] # 0.9 K/mm3 (0.0-0.8) H 06/14/17 05:16 Eos # 0.1 K/mm3 (0.0-0.4) 06/14/17 05:16 Baso # 0.1 K/mm3 (0.0-0.1) 06/14/17 05:16 Add Manual Diff Complete 06/10/17 00:47 Total Counted 100 06/10/17 00:47 Seg Neutrophils % 55.8 % (40.0-70.0) 06/14/17 05:16 Seg Neuts % (Manual) 51.0 % (40.0-70.0) 06/10/17 00:47 Band Neutrophils % 26.0 % 06/10/17 00:47 Lymphocytes % (Manual) 9.0 % (13.4-35.0) L 06/10/17 00:47 Reactive Lymphs % (Man) 0 % 06/10/17 00:47 Monocytes % (Manual) 5.0 % (0.0-7.3) 06/10/17 00:47 Eosinophils % (Manual) 0 % (0.0-4.3) 06/10/17 00:47 Basophils % (Manual) 0 % (0.0-1.8) 06/10/17 00:47 Metamyelocytes % 9.0 % 06/10/17 00:47 Myelocytes % 0 % 06/10/17 00:47 Promyelocytes % 0 % 06/10/17 00:47 Blast Cells % 0 % 06/10/17 00:47 Nucleated RBC % Not Reportable 06/10/17 00:47 Seg Neutrophils # 3.9 K/mm3 (1.8-7.7) 06/14/17 05:16 Seg Neutrophils # Man 10.9 K/mm3 (1.8-7.7) H 06/10/17 00:47 Band Neutrophils # 5.5 K/mm3 06/10/17 00:47 Lymphocytes # (Manual) 1.9 K/mm3 (1.2-5.4) 06/10/17 00:47 Abs React Lymphs (Man) 0.0 K/mm3 06/10/17 00:47 Monocytes # (Manual) 1.1 K/mm3 (0.0-0.8) H 06/10/17 00:47 Eosinophils # (Manual) 0.0 K/mm3 (0.0-0.4) 06/10/17 00:47 Basophils # (Manual) 0.0 K/mm3 (0.0-0.1) 06/10/17 00:47 Metamyelocytes # 1.9 K/mm3 06/10/17 00:47 Myelocytes # 0.0 K/mm3 06/10/17 00:47 Promyelocytes # 0.0 K/mm3 06/10/17 00:47 Blast Cells # 0.0 K/mm3 06/10/17 00:47 WBC Morphology Not Reportable 06/10/17 00:47 Hypersegmented Neuts Not Reportable 06/10/17 00:47 Hyposegmented Neuts Not Reportable 06/10/17 00:47 Hypogranular Neuts Not Reportable 06/10/17 00:47 Smudge Cells Not Reportable 06/10/17 00:47 Toxic Granulation Not Reportable 01/02/18 00:47 Toxic Vacuolation Not Reportable 06/10/17 00:47 Dohle Bodies Not Reportable 06/10/17 00:47 Pelger-Huet Anomaly Not Reportable 06/10/17 00:47 Dolly Rods Not Reportable 06/10/17 00:47 Platelet Estimate Appears normal 06/10/17 00:47 Clumped Platelets Not Reportable 06/10/17 00:47 Plt Clumps, EDTA Not Reportable 06/10/17 00:47 Large Platelets Not Reportable 06/10/17 00:47 Giant Platelets Not Reportable 06/10/17 00:47 Platelet Satelliting Not Reportable 06/10/17 00:47 Plt Morphology Comment Not Reportable 06/10/17 00:47 RBC Morphology Not Reportable 06/10/17 00:47 Dimorphic RBCs Not Reportable 06/10/17 00:47 Polychromasia Not Reportable 06/10/17 00:47 Hypochromasia Few 06/10/17 00:47 Poikilocytosis Not Reportable 06/10/17 00:47 Anisocytosis 1+ 06/10/17 00:47 Microcytosis Not Reportable 06/10/17 00:47 Macrocytosis Not Reportable 06/10/17 00:47 Spherocytes Not Reportable 06/10/17 00:47 Pappenheimer Bodies Not Reportable 06/10/17 00:47 Sickle Cells Not Reportable 06/10/17 00:47 Target Cells Not Reportable 06/10/17 00:47 Tear Drop Cells Not Reportable 06/10/17 00:47 Ovalocytes Not Reportable 06/10/17 00:47 Helmet Cells Not Reportable 06/10/17 00:47 Tang-Callahan Bodies Not Reportable 06/10/17 00:47 [place] Rings Not Reportable 06/10/17 00:47 Meryl Cells Not Reportable 06/10/17 00:47 Bite Cells Not Reportable 06/10/17 00:47 Crenated Cell Not Reportable 06/10/17 00:47 Elliptocytes Not Reportable 06/10/17 00:47 Acanthocytes (Spur) Not Reportable 06/10/17 00:47 Rouleaux Not Reportable 06/10/17 00:47 Hemoglobin C Crystals Not Reportable 06/10/17 00:47 Schistocytes Not Reportable 06/10/17 00:47 Malaria parasites Not Reportable 06/10/17 00:47 Antwan Bodies Not Reportable 06/10/17 00:47 Hem Pathologist Commnt No 06/10/17 00:47 PT 24.1 Sec. (12.2-14.9) H 06/14/17 05:16 INR 2.03 (0.87-1.13) H 06/14/17 05:16 APTT 24.0 Sec. (24.2-36.6) L 06/10/17 00:47 D-Dimer 4355.41 ng/mlDDU (0-234) H 06/10/17 21:45 POC ABG pH 7.443 (7.35-7.45) 06/10/17 00:35 POC ABG pCO2 34.8 (35-45) L 06/10/17 00:35 POC ABG pO2 56 (80-105) L 06/10/17 00:35 POC ABG HCO3 23.8 06/10/17 00:35 POC ABG Total CO2 25 06/10/17 00:35 POC ABG O2 Sat 90 06/10/17 00:35 POC ABG Base Excess 0 06/10/17 00:35 FiO2 100 % 06/10/17 00:35 Sodium 142 mmol/L (137-145) 06/14/17 05:16 Potassium 4.3 mmol/L (3.6-5.0) 06/14/17 05:16 Chloride 100.1 mmol/L (98-107) 06/14/17 05:16 Carbon Dioxide 25 mmol/L (22-30) 06/14/17 05:16 Anion Gap 21 mmol/L 06/14/17 05:16 BUN 33 mg/dL (9-20) H 06/14/17 05:16 Creatinine 1.5 mg/dL (0.8-1.5) 06/14/17 05:16 Estimated GFR 60 ml/min 06/14/17 05:16 BUN/Creatinine Ratio 22 % 06/14/17 05:16 Glucose 161 mg/dL (75-100) H 06/14/17 05:16 POC Glucose 220 (70-105) H 06/13/17 22:09 Lactic Acid 1.70 mmol/L (0.7-2.0) 06/10/17 02:47 Calcium 8.6 mg/dL (8.4-10.2) 06/14/17 05:16 Total Bilirubin 0.50 mg/dL (0.1-1.2) 06/10/17 00:47 AST 43 units/L (5-40) H 06/10/17 00:47 ALT 30 units/L (7-56) 06/10/17 00:47 Alkaline Phosphatase 119 units/L (35-129) 06/10/17 00:47 Total Creatine Kinase 102 units/L (55-170) 06/10/17 21:45 CK-MB (CK-2) 2.2 ng/mL (0.0-4.0) 06/10/17 21:45 CK-MB (CK-2) Rel Index 2.1 (0-4) 06/10/17 21:45 Troponin T 0.063 ng/mL (0.00-0.029) H D 06/10/17 21:45 C-Reactive Protein 17.00 mg/dL (0.00-1.30) H 06/12/17 16:52 NT-Pro-B Natriuret Pep 3826 pg/mL (0-900) H 06/10/17 02:40 Total Protein 7.2 g/dL (6.3-8.2) 06/10/17 00:47 Albumin 3.5 g/dL (3.9-5) L 06/10/17 00:47 Albumin/Globulin Ratio 0.9 % 06/10/17 00:47 Triglycerides 155 mg/dL (2-149) H 06/10/17 00:47 Cholesterol 175 mg/dL (50-199) 06/10/17 00:47 LDL Cholesterol Direct 83 mg/dL (50-130) 06/10/17 00:47 HDL Cholesterol 61 mg/dL (40-59) H 06/10/17 00:47 Cholesterol/HDL Ratio 2.86 % 06/10/17 00:47 Urine Color Yellow (Yellow) 06/11/17 11:39 Urine Turbidity Cloudy (Clear) 06/11/17 11:39 Urine pH 5.0 (5.0-7.0) 06/11/17 11:39 Ur Specific Roy 1.016 (1.003-1.030) 06/11/17 11:39 Urine Protein 30 mg/dl mg/dL (Negative) 06/11/17 11:39 Urine Glucose (UA) Neg mg/dL (Negative) 06/11/17 11:39 Urine Ketones Neg mg/dL (Negative) 06/11/17 11:39 Urine Blood Neg (Negative) 06/11/17 11:39 Urine Nitrite Neg (Negative) 06/11/17 11:39 Urine Bilirubin Neg (Negative) 06/11/17 11:39 Urine Urobilinogen 2.0 mg/dL (<2.0) 06/11/17 11:39 Ur Leukocyte Esterase Mod (Negative) 06/11/17 11:39 Urine WBC (Auto) 31.0 /HPF (0.0-6.0) H 06/11/17 11:39 Urine RBC (Auto) 4.0 /HPF (0.0-6.0) 06/11/17 11:39 U Epithel Cells (Auto) 1.0 /HPF (0-13.0) 06/11/17 11:39 Urine Bacteria (Auto) 1+ /HPF (Negative) 06/11/17 11:39 Digoxin 0.8 ng/mL (0.9-2.0) L 06/11/17 23:32
[2017-06-14] MEDS: COUMADIN PO SCH (16:46)
[2017-06-14] MEDS: PRAVACHOL PO SCH (22:51)
[2017-06-15] MEDS: ZOSYN/NS 4.5GM/100ML 4.5 GM/100 ML VIAL IV SCH ×3 (05:46→21:57)
[2017-06-15 06:49] LABS: INR 2.42 (0.87-1.13)
[2017-06-15] MEDS: NOVOLOG SUB-Q SCH ×4 (08:21→22:00)
--- NOTE | 2017-06-15 08:57 | Event Note ---
Date: 06/15/17 Patient in no acute distress. Resting comfortably. No chest pain palpitations or shortness of breath Telemetry demonstrates sinus rhythm 55-65 bpm. Vital signs are stable Neck is supple carotids 2+ no observable JVD Lungs reveal diminished breath sounds but no wheezes rales or rhonchi Cardiac rhythm and rate are regular no murmur or extra sound audible. Abdomen soft and nontender Extremities trace to 1+ edema Impression and plan: Paroxysmal atrial fibrillation, heart failure with reduced ejection fraction. Continue present medical program. Awaiting AICD implantation early this week if blood cultures remain negative and cleared by infectious disease.
[2017-06-15] MEDS: DELTASONE PO SCH (09:01)
[2017-06-15] MEDS: CORDARONE PO SCH ×2 (09:01→21:58)
[2017-06-15] MEDS: COREG PO SCH ×2 (09:01→21:58)
[2017-06-15] MEDS: NEURONTIN PO SCH ×2 (09:01→21:59)
[2017-06-15] MEDS: GLUCOTROL PO SCH ×3 (09:01→22:04)
[2017-06-15] MEDS: ZYLOPRIM PO SCH (09:01)
[2017-06-15] MEDS: VANCOMYCIN 1,750 MG in NACL 0.9% 500 ML 500 ML IV SCH ×2 (09:04→21:57)
--- NOTE | 2017-06-15 11:38 | Progress Note ---
Assessment and Plan Assessment and Plan Assessment and plan: 51-year-old -Mauritanian with past medical history significant for morbid obesity, congestive heart failure, sleep apnea, on CPAP as admitted yesterday after the patient has syncopal episode Syncopal episode - Secondary to V. fib versus A. fib with aberrancy - Patient was shocked 3 times on 06/13 - Patient is currently on amiodarone - Patient needs ICD - ID cleared for ICD on -Cardiology consult apprecitaed -Chronic respiratory failure - On CPAP Atrial fibrillation - Continue warfarin Acute on chronic systolic CHF - Patient needs ICD before discharge - EF 10-15% Obstructive sleep apnea - Continue CPAP SIRS - Evidenced by leukocytosis and fever - Patient is on IV Zosyn and vancomycin - ID consult appreciated - 06/10 blood culture is positive for coagulase negative staph aureus, repeat blood cultures are negative Hypotension - Resolved CKD DVT prophylaxis - continue warfarin Disposition - I have discussed with [facility] physician about the management plan, the patient need for ICD placement. They agreed to keep the patient at our service. Subjective Date of service: 06/15/17 Principal diagnosis: syncope, vtach vs. afib with abberancy Interval history: Doing well.No complaints.Afebrile Objective - Constitutional Vitals: Vital Signs - 12hr 06/15/17 06/15/17 06/15/17 01:50 03:47 07:36 Temperature 97.7 F 97.4 F L 97.3 F L Pulse Rate 54 L 62 Respiratory 22 22 20 Rate Blood Pressure 133/82 138/85 Blood Pressure 136/87 [Left] O2 Sat by Pulse 97 98 Oximetry 06/15/17 06/15/17 07:45 08:53 Temperature 97.3 F L Pulse Rate 57 L Respiratory 20 Rate Blood Pressure Blood Pressure 130/85 [Left] O2 Sat by Pulse 95 97 Oximetry General appearance: Present: no acute distress, well-nourished - EENT Eyes: PERRL, EOM intact ENT: hearing intact, clear oral mucosa Ears: bilateral: normal - Neck Neck: supple, normal ROM - Respiratory Respiratory effort: normal Respiratory: bilateral: CTA - Breasts Breasts: normal - Cardiovascular Heart rate: 80 Rhythm: irregularly irregular Heart Sounds: Present: S1 & S2. Absent: gallop, rub Extremities: pulses intact, No edema, normal color, Full ROM - Gastrointestinal General gastrointestinal: Present: soft, non-tender, non-distended, normal bowel sounds Rectal Exam: deferred - Genitourinary Male genitourinary: normal - Integumentary Integumentary: clear, warm, dry - Musculoskeletal Musculoskeletal: 1, strength equal bilaterally - Neurologic Neurologic: moves all extremities - Psychiatric Psychiatric: memory intact, appropriate mood/affect, intact judgment & insight - Labs CBC & Chem 7: 06/14/17 05:16 06/14/17 05:16 Labs: Abnormal lab results 06/14/17 06/14/17 06/14/17 Range/Units 07:35 11:34 16:47 PT (12.2-14.9) Sec. INR (0.87-1.13) POC Glucose 128 H 118 H 256 H (70-105) 06/14/17 06/15/17 Range/Units 22:00 06:08 PT 27.8 H (12.2-14.9) Sec. INR 2.42 H (0.87-1.13) POC Glucose 275 H (70-105)
[2017-06-15] MEDS: COUMADIN PO SCH (16:45)
[2017-06-15] MEDS: PRAVACHOL PO SCH (21:59)
[2017-06-16] MEDS: ZOSYN/NS 4.5GM/100ML 4.5 GM/100 ML VIAL IV SCH ×3 (05:34→22:06)
[2017-06-16] MEDS: NOVOLOG SUB-Q SCH ×4 (09:01→22:11)
--- NOTE | 2017-06-16 11:06 | Progress Note ---
Assessment and Plan Assessment: Syncope VT -->shocked x 3 (06/11/17) Paroxysmal atrial fibrillation with abberancy Acute on chronic HFREF EF 10-15% Cardiomyopathy - EF 10-15% Hypotension -->improved with IVF Fever/?bacteremia - most recent blood cultures on 06/12 negative Hypertension Hyperlipidemia DM SKYE on CKD - improved; renal indices stable NHUNG on CPAP Severe pulmonary HTN Morbid obesity Plan: Pt with echo at [facility] on 05/07/2017 which showed LVEF 25%, mild LVH, RV mildly dilated, RV systolic function mildly reduced, LA mod dilated, RA markedly dilated, mild to mod TR, severe pulm HTN with RVSP >60mmHg. Echo at [facility] on 06/10/17 showed EF 10-15%, mod LVH, LA mildly dilated, mild MR, mild TR, RVSP 59mmHg. No ischemic evaluation on record. Recommend coronary angiography to r/o ischemic CMP. Will hold coumadin from today and plan to proceed with LHC once INR reaches 1.7-1.8. Will tentatively plan for LHC in AM pending lab results. NPO after MN. Await EP consultation regarding AICD candidacy - AICD implantation would follow ischemic evaluation. Per ID, "Ok to place AICD on 06/16 while on vancomycin and zosyn as long as repeat blood cx on 06/12 remain negative." Cont coreg, amio, statin. Cont to hold home digoxin. Resume home ASA 81, lisinopril 2.5, imdur, bumex. Monitor renal indices closely. Assessment and plan reviewed with pt at bedside. The patient has been seen in conjunction with Dr. Liao who agrees with the assessment and plan of care. Subjective Date of service: 06/16/17 Principal diagnosis: syncope, vtach vs. afib with abberancy Interval history: Pt resting comfortably in bed, no current complaints. No acute events overnight. Tele reviewed - pt currently in SR with VT or aberrancy overnight. Objective Last Vital Signs Temp 98.5 F 06/16/17 07:36 Pulse 53 L 06/16/17 08:25 Resp 22 06/16/17 07:36 BP 139/73 06/16/17 07:36 Pulse Ox 94 06/16/17 07:36 - Physical Examination General: No Apparent Distress HEENT: Positive: PERRL, Normocephaly, Mucus Membranes Moist Neck: Positive: neck supple, trachea midline Cardiac: Positive: Reg Rate and Rhythm, S1/S2 Lungs: Positive: Decreased Breath Sounds Neuro: Positive: Grossly Intact Abdomen: Positive: Soft, Active Bowel Sounds. Negative: Tender Skin: Negative: Rash Extremities: Present: +1 Edema - Imaging and Cardiology EKG: image reviewed Echo: report reviewed ( 06/10/17 showed EF 10-15%, mod LVH, LA mildly dilated, mild MR, mild TR, RVSP 59mmHg) - Telemetry EKG Rhythm: Sinus Rhythm
[2017-06-16] MEDS: NEURONTIN PO SCH ×2 (11:32→22:08)
[2017-06-16] MEDS: DELTASONE PO SCH (11:32)
[2017-06-16] MEDS: CORDARONE PO SCH ×2 (11:33→22:13)
[2017-06-16] MEDS: ZYLOPRIM PO SCH (11:33)
[2017-06-16] MEDS: GLUCOTROL PO SCH ×2 (11:33→22:08)
[2017-06-16] MEDS: COREG PO SCH ×2 (11:33→22:09)
[2017-06-16] MEDS ORDERED: NACL 0.9% 500 ML 500 ML IV SCH (12:00)
--- NOTE | 2017-06-16 12:41 | Progress Note ---
Assessment and Plan Assessment and Plan Assessment and plan: 51-year-old -Fijian with past medical history significant for morbid obesity, congestive heart failure, sleep apnea, on CPAP as admitted yesterday after the patient has syncopal episode Syncopal episode - Secondary to V. fib versus A. fib with aberrancy - Patient was shocked 3 times on 06/13 - Patient is currently on amiodarone - Patient needs ICD - ID cleared for ICD Today -Cardiology consult apprecitaed -Chronic respiratory failure - On CPAP Atrial fibrillation - Continue warfarin Acute on chronic systolic CHF - Patient needs ICD before discharge - EF 10-15% Obstructive sleep apnea - Continue CPAP SIRS - Evidenced by leukocytosis and fever - Patient is on IV Zosyn and vancomycin - ID consult appreciated - 06/10 blood culture is positive for coagulase negative staph aureus, repeat blood cultures are negative Hypotension - Resolved CKD DVT prophylaxis - continue warfarin Disposition - I have discussed with [facility] physician about the management plan, the patient need for ICD placement. They agreed to keep the patient at our service. Subjective Date of service: 06/16/17 Principal diagnosis: syncope, vtach vs. afib with abberancy Interval history: Doing well.No complaints.Afebrile Objective - Constitutional Vitals: Vital Signs - 12hr 06/16/17 06/16/17 06/16/17 04:04 07:36 08:25 Temperature 97.6 F 98.5 F Pulse Rate 58 L 55 L 53 L Respiratory 23 22 Rate Blood Pressure 134/84 139/73 O2 Sat by Pulse 95 94 Oximetry General appearance: Present: no acute distress, well-nourished - EENT Eyes: PERRL, EOM intact ENT: hearing intact, clear oral mucosa Ears: bilateral: normal - Neck Neck: supple, normal ROM - Respiratory Respiratory effort: normal Respiratory: bilateral: CTA - Breasts Breasts: deferred - Cardiovascular Heart rate: 62 Rhythm: irregularly irregular Heart Sounds: Present: S1 & S2. Absent: gallop, rub Extremities: pulses intact, No edema, normal color, Full ROM - Gastrointestinal General gastrointestinal: Present: soft, non-tender, non-distended, normal bowel sounds - Genitourinary Male genitourinary: deferred - Integumentary Integumentary: clear, warm, dry - Musculoskeletal Musculoskeletal: 1, strength equal bilaterally - Neurologic Neurologic: moves all extremities - Psychiatric Psychiatric: memory intact, appropriate mood/affect, intact judgment & insight - Allied health notes Allied health notes reviewed: nursing, case management - Labs CBC & Chem 7: 06/14/17 05:16 06/14/17 05:16 Labs: Abnormal lab results 06/15/17 06/15/17 06/15/17 Range/Units 07:39 15:13 21:06 POC Glucose 383 H 200 H 183 H (70-105) 06/16/17 Range/Units 11:47 POC Glucose 143 H (70-105) - Imaging and cardiology EKG: report reviewed
[2017-06-16] MEDS: VANCOMYCIN 1,750 MG in NACL 0.9% 500 ML 500 ML IV SCH ×2 (13:15→22:06)
--- NOTE | 2017-06-16 13:35 | XRay Report ---
PORTABLE CHEST INDICATION: Right arm PICC placement. COMPARISON: 06/10/2017 FINDINGS: Portable, frontal chest radiograph demonstrates new right upper extremity PICC felt extending up to mid to distal SVC, though overlying the spine with patient rotation to the left. Stable enlarged cardiomediastinal silhouette with increased congestive bronchovascular markings centrally and haziness towards the lung bases, possibly technical and/or pleural fluid. Left hemidiaphragm now obscured. EKG leads. Intact bones. CONCLUSION: Interval grossly unremarkable right upper extremity PICC placement in this patient with cardiomegaly and worsening pulmonary vascular congestion, as described. Please correlate. Thank you for the opportunity to participate in this patient's care.
[2017-06-16 17:20] LABS: INR 2.82 (0.87-1.13)
[2017-06-16] MEDS: HEPARIN SUB-Q SCH ×2 (18:13→22:06)
[2017-06-16] MEDS: ZESTRIL PO SCH (18:13)
[2017-06-16] MEDS: BUMEX PO SCH (22:08)
[2017-06-16] MEDS: PRAVACHOL PO SCH (22:09)
[2017-06-17] MEDS: ZOSYN/NS 4.5GM/100ML 4.5 GM/100 ML VIAL IV SCH ×3 (05:51→23:37)
[2017-06-17] MEDS: HEPARIN SUB-Q SCH (05:56)
[2017-06-17 06:57] LABS: Hemoglobin 10.8 gm/dl (11.8-15.2); Mean Corpuscular HGB Conc 32 % (32-34); Mean Corpuscular Hemoglobin 30 pg (28-32); Mean Corpuscular Volume 95 fl (84-94); Platelet Count 240 K/mm3 (140-440); Red Cell Distribution Width 15.5 % (13.2-15.2)
[2017-06-17 07:07] LABS: INR 3.03 (0.87-1.13)
[2017-06-17 07:13] LABS: BUN/Creatinine Ratio 19; Blood Urea Nitrogen 27 mg/dL (9-20); Calcium 8.6 mg/dL (8.4-10.2); Hemolysis Index 1
[2017-06-17] MEDS: BUMEX PO SCH ×2 (08:28→18:37)
[2017-06-17 09:28] LABS: Anisocytosis RARE; Band Neutrophils # (Manual) 0.5 K/mm3; Basophils % (Manual) 0 % (0.0-1.8); Eosinophils % (Manual) 0 % (0.0-4.3); Macrocytosis Few; Total Cells Counted 100
[2017-06-17 09:29] LABS: Platelet Estimate Consistent w Auto
[2017-06-17] MEDS: NOVOLOG SUB-Q SCH ×4 (10:31→21:26)
--- NOTE | 2017-06-17 10:59 | Progress Note ---
Assessment and Plan Assessment: Syncope VT -->shocked x 3 (06/11/17) Paroxysmal atrial fibrillation with abberancy Acute on chronic HFREF EF 10-15% Cardiomyopathy - EF 10-15% Hypotension -->improved with IVF Fever/?bacteremia - most recent blood cultures on 06/12 negative Hypertension Hyperlipidemia DM SKYE on CKD - improved; renal indices stable NHUNG on CPAP Severe pulmonary HTN Morbid obesity Plan: Pt's body weight exceeds the weight limit of phlebotomist lab assistant/EP lab table of 450lb and thus we are unable to proceed with coronary angiography or AICD implantation at this time. LifeVest has been ordered as an alternative. Once LifeVest is placed, pt may discharge home from cardiology standpoint and he is to follow up with his primary cardiology team at [place]. Assessment and plan reviewed with pt at bedside. The patient has been seen in conjunction with Dr. Liao who agrees with the assessment and plan of care. Subjective Date of service: 06/17/17 Principal diagnosis: syncope, vtach vs. afib with abberancy Interval history: Pt resting comfortably in bed, no current complaints. No acute events overnight. Tele reviewed - pt currently in SR with VT or aberrancy overnight. Objective Last Vital Signs Temp 98.5 F 06/17/17 08:45 Pulse 48 L 06/17/17 08:45 Resp 22 06/17/17 08:45 BP 127/65 06/17/17 08:45 Pulse Ox 98 06/17/17 08:45 - Physical Examination General: No Apparent Distress HEENT: Positive: PERRL, Normocephaly, Mucus Membranes Moist Neck: Positive: neck supple, trachea midline Cardiac: Positive: Reg Rate and Rhythm, S1/S2 Lungs: Positive: Decreased Breath Sounds Neuro: Positive: Grossly Intact Abdomen: Positive: Soft, Active Bowel Sounds. Negative: Tender Skin: Negative: Rash Extremities: Present: +1 Edema - Labs and Meds Coagulation 06/16/17 06/17/17 Range/Units 17:00 06:44 PT 31.4 H 33.3 H (12.2-14.9) Sec. INR 2.82 H 3.03 H (0.87-1.13) CBC 06/17/17 Range/Units 06:44 WBC 9.4 (4.5-11.0) K/mm3 RBC 3.60 L (3.65-5.03) M/mm3 Hgb 10.8 L (11.8-15.2) gm/dl Hct 34.0 L (35.5-45.6) % Plt Count 240 (140-440) K/mm3 Comprehensive Metabolic Panel 06/17/17 Range/Units 06:44 Sodium 141 (137-145) mmol/L Potassium 4.1 (3.6-5.0) mmol/L Chloride 105.1 (98-107) mmol/L Carbon Dioxide 26 (22-30) mmol/L BUN 27 H (9-20) mg/dL Creatinine 1.4 (0.8-1.5) mg/dL Glucose 97 (75-100) mg/dL Calcium 8.6 (8.4-10.2) mg/dL - Imaging and Cardiology EKG: report reviewed Echo: report reviewed ( 06/10/17 showed EF 10-15%, mod LVH, LA mildly dilated, mild MR, mild TR, RVSP 59mmHg) - Telemetry EKG Rhythm: Sinus Rhythm
[2017-06-17] MEDS: VANCOMYCIN 1,750 MG in NACL 0.9% 500 ML 500 ML IV SCH ×2 (14:15→21:21)
[2017-06-17] MEDS: GLUCOTROL PO SCH ×2 (14:15→21:25)
[2017-06-17] MEDS: BABY ASPIRIN PO SCH (14:15)
[2017-06-17] MEDS: ZESTRIL PO SCH (14:15)
[2017-06-17] MEDS: COREG PO SCH ×2 (14:15→21:25)
[2017-06-17] MEDS: NEURONTIN PO SCH ×2 (14:16→21:24)
[2017-06-17] MEDS: ZYLOPRIM PO SCH (14:16)
[2017-06-17] MEDS: DELTASONE PO SCH (14:16)
[2017-06-17] MEDS: IMDUR PO SCH (14:17)
--- NOTE | 2017-06-17 14:30 | Progress Note ---
Assessment and Plan Assessment: 1) Sepsis: resolved. Etiology unclear ? UTI ? bacteremia. CRP=17 2) Syncopal episode at home 3) Coag neg Staph in blood cultures ? real vs a contaminant. Blood cx + 2 of 2 bottles on 06/10, repeat blood cx on 06/12 negative so far. History of recent left AC PIV line infection at [facility], [place] 4) V tach vs. afib with abberancy s/p shocked x 3 and started on an amiodarone gtt. Echo showed EF 10-15% 5) Chronic systolic heart failure 6) Afib on coumadin 7) Hypertension 8) Diabetes 9) CKD 10) NHUNG on CPAP 11) Presumed UTI -urine cx negative Plan: -Per cards - Pt's body weight exceeds the weight limit of cath lab radiology technician/EP lab table of 450lb and thus we are unable to proceed with coronary angiography or AICD implantation at this time. LifeVest has been ordered as an alternative. -stop zosyn -continue vanco renally dosed -upon discharge will continue vancomycin 1750 mg IV q 12 hours for 14 days from 06/12 until 06/25 I am signing off Thank you Dr Monzon for your consultation, will follow up with you. Kiara Sampson MD Infectious Diseases Specialist [facility] M [phone] O [phone] Subjective Date of service: 06/17/17 Principal diagnosis: syncope, vtach vs. afib with abberancy Interval history: Feels great, no fever, no pain, wants to go home. Microbiology: Blood cultures: 06/10 Coag neg 2 of 2 06/12 ngtd Urine cultures: Current Antimicrobials: Zosyn 06/12 vanco 06/12 Previous Antimicrobials: Objective - Exam Narrative Exam: General appearance: Alert in NAD, conversant morbidly obese Eyes: anicteric sclerae, moist conjunctivae; no lid-lag; PERRLA HENT: Atraumatic; oropharynx clear Neck: Trachea midline; supple, no thyromegaly or lymphadenopathy Lungs: CTA CV: RRR Abdomen: Soft, extensive pannus Extremities: cee leg edema Skin: Normal temperature, turgor and texture; no rash, ulcers or subcutaneous nodules Psych: Appropriate affect, alert and oriented to person, place and time. Neuro: alert and oriented x 3. Moving all extermities Lines: No CVL / PICC - Constitutional Vitals: Vital Signs Temp Pulse Resp BP Pulse Ox 97.9 F 59 L 18 141/52 96 06/17/17 12:56 06/17/17 12:56 06/17/17 12:56 06/17/17 12:56 06/17/17 12:56 Temperature -Last 24 Hours Temperature 97.9 F Temperature 98.5 F Temperature 97.8 F Temperature 98.6 F Temperature 98.6 F - Labs CBC & Chem 7: 06/17/17 06:44 06/17/17 06:44 Labs: Abnormal lab results 06/16/17 06/16/17 06/16/17 Range/Units 16:55 17:00 21:15 RBC (3.65-5.03) M/mm3 Hgb (11.8-15.2) gm/dl Hct (35.5-45.6) % MCV (84-94) fl RDW (13.2-15.2) % PT 31.4 H (12.2-14.9) Sec. INR 2.82 H (0.87-1.13) BUN (9-20) mg/dL POC Glucose 228 H 236 H (70-105) 06/17/17 06/17/17 06/17/17 Range/Units 05:55 06:44 06:44 RBC 3.60 L (3.65-5.03) M/mm3 Hgb 10.8 L (11.8-15.2) gm/dl Hct 34.0 L (35.5-45.6) % MCV 95 H (84-94) fl RDW 15.5 H (13.2-15.2) % PT 33.3 H (12.2-14.9) Sec. INR 3.03 H (0.87-1.13) BUN (9-20) mg/dL POC Glucose 108 H (70-105) 06/17/17 Range/Units 06:44 RBC (3.65-5.03) M/mm3 Hgb (11.8-15.2) gm/dl Hct (35.5-45.6) % MCV (84-94) fl RDW (13.2-15.2) % PT (12.2-14.9) Sec. INR (0.87-1.13) BUN 27 H (9-20) mg/dL POC Glucose (70-105)
--- NOTE | 2017-06-17 14:51 | Progress Note ---
Assessment and Plan Assessment and plan: Syncope. Etiology multifactorial secondary to sepsis associated hypotension and V. tach. VT -->shocked x 3 (06/11/17) Pt's body weight exceeds the weight limit of director of labor relations/EP lab table of 450lb and thus we are unable to proceed with coronary angiography or AICD implantation at this time. LifeVest has been ordered as an alternative. Paroxysmal atrial fibrillation with abberancy Acute on chronic HFREF EF 10-15% Cardiomyopathy - EF 10-15% Sepsis: resolved. Etiology unclear ? UTI ? bacteremia. CRP=17, Coag neg Staph in blood cultures ? real vs a contaminant. Blood cx + 2 of 2 bottles on 06/10, repeat blood cx on 06/12 negative so far. History of recent left AC PIV line infection at [facility] most recent blood cultures on 06/12 negative. Zosyn discontinue. Vancomycin renally dosed. Upon discharge, we will continue vancomycin 1750 mg IV q 12 hours for 14 days from 06/12 until 06/25 Hypertension. Continue antihypertensive medication Hyperlipidemia. DM. Continue sliding-scale insulin and Accu-Cheks SKYE on CKD - improved; renal indices stable NHUNG on CPAP Severe pulmonary HTN Morbid obesity History Interval history: No new issues overnight Hospitalist Physical - Constitutional Vitals: Temp Pulse Resp BP Pulse Ox 97.9 F 59 L 18 141/52 96 06/17/17 12:56 06/17/17 12:56 06/17/17 12:56 06/17/17 12:56 06/17/17 12:56 General appearance: Present: no acute distress, well-nourished - EENT Eyes: Present: PERRL, EOM intact ENT: hearing intact, clear oral mucosa, dentition normal - Neck Neck: Present: supple, normal ROM - Respiratory Respiratory effort: normal Respiratory: bilateral: CTA - Cardiovascular Rhythm: regular Heart Sounds: Present: S1 & S2. Absent: gallop, rub - Extremities Extremities: no ischemia, No edema, Full ROM - Abdominal General gastrointestinal: soft, non-tender, non-distended, normal bowel sounds - Integumentary Integumentary: Present: clear, warm, dry - Neurologic Neurologic: CNII-XII intact, moves all extremities Results - Labs CBC & Chem 7: 06/17/17 06:44 06/17/17 06:44 Labs: Laboratory Last Values WBC 9.4 K/mm3 (4.5-11.0) 06/17/17 06:44 RBC 3.60 M/mm3 (3.65-5.03) L 06/17/17 06:44 Hgb 10.8 gm/dl (11.8-15.2) L 06/17/17 06:44 Hct 34.0 % (35.5-45.6) L 06/17/17 06:44 MCV 95 fl (84-94) H 06/17/17 06:44 MCH 30 pg (28-32) 06/17/17 06:44 MCHC 32 % (32-34) 06/17/17 06:44 RDW 15.5 % (13.2-15.2) H 06/17/17 06:44 Plt Count 240 K/mm3 (140-440) 06/17/17 06:44 Lymph % (Auto) 29.3 % (13.4-35.0) 06/14/17 05:16 [place] % (Auto) 13.3 % (0.0-7.3) H 06/14/17 05:16 Eos % (Auto) 0.9 % (0.0-4.3) 06/14/17 05:16 Baso % (Auto) 0.7 % (0.0-1.8) 06/14/17 05:16 Lymph # 2.1 K/mm3 (1.2-5.4) 06/14/17 05:16 [place] # 0.9 K/mm3 (0.0-0.8) H 06/14/17 05:16 Eos # 0.1 K/mm3 (0.0-0.4) 06/14/17 05:16 Baso # 0.1 K/mm3 (0.0-0.1) 06/14/17 05:16 Add Manual Diff Complete 06/17/17 06:44 Total Counted 100 06/17/17 06:44 Seg Neutrophils % 55.8 % (40.0-70.0) 06/14/17 05:16 Seg Neuts % (Manual) 64.0 % (40.0-70.0) 06/17/17 06:44 Band Neutrophils % 5.0 % 06/17/17 06:44 Lymphocytes % (Manual) 25.0 % (13.4-35.0) 06/17/17 06:44 Reactive Lymphs % (Man) 0 % 06/17/17 06:44 Monocytes % (Manual) 5.0 % (0.0-7.3) 06/17/17 06:44 Eosinophils % (Manual) 0 % (0.0-4.3) 06/17/17 06:44 Basophils % (Manual) 0 % (0.0-1.8) 06/17/17 06:44 Metamyelocytes % 1.0 % 06/17/17 06:44 Myelocytes % 0 % 06/17/17 06:44 Promyelocytes % 0 % 06/17/17 06:44 Blast Cells % 0 % 06/17/17 06:44 Nucleated RBC % Not Reportable 06/17/17 06:44 Seg Neutrophils # 3.9 K/mm3 (1.8-7.7) 06/14/17 05:16 Seg Neutrophils # Man 6.0 K/mm3 (1.8-7.7) 06/17/17 06:44 Band Neutrophils # 0.5 K/mm3 06/17/17 06:44 Lymphocytes # (Manual) 2.4 K/mm3 (1.2-5.4) 06/17/17 06:44 Abs React Lymphs (Man) 0.0 K/mm3 06/17/17 06:44 Monocytes # (Manual) 0.5 K/mm3 (0.0-0.8) 06/17/17 06:44 Eosinophils # (Manual) 0.0 K/mm3 (0.0-0.4) 06/17/17 06:44 Basophils # (Manual) 0.0 K/mm3 (0.0-0.1) 06/17/17 06:44 Metamyelocytes # 0.1 K/mm3 06/17/17 06:44 Myelocytes # 0.0 K/mm3 06/17/17 06:44 Promyelocytes # 0.0 K/mm3 06/17/17 06:44 Blast Cells # 0.0 K/mm3 06/17/17 06:44 WBC Morphology Not Reportable 06/17/17 06:44 Hypersegmented Neuts Not Reportable 06/17/17 06:44 Hyposegmented Neuts Not Reportable 06/17/17 06:44 Hypogranular Neuts Not Reportable 06/17/17 06:44 Smudge Cells Not Reportable 06/17/17 06:44 Toxic Granulation Not Reportable 06/17/17 06:44 Toxic Vacuolation Not Reportable 06/17/17 06:44 Dohle Bodies Not Reportable 06/17/17 06:44 Pelger-Huet Anomaly Not Reportable 06/17/17 06:44 [place] Rods Not Reportable 06/17/17 06:44 Platelet Estimate Consistent w auto 06/17/17 06:44 Clumped Platelets Not Reportable 06/17/17 06:44 Plt Clumps, EDTA Not Reportable 06/17/17 06:44 Large Platelets Not Reportable 06/17/17 06:44 Giant Platelets Not Reportable 06/17/17 06:44 Platelet Satelliting Not Reportable 06/17/17 06:44 Plt Morphology Comment Not Reportable 06/17/17 06:44 RBC Morphology Not Reportable 06/17/17 06:44 Dimorphic RBCs Not Reportable 06/17/17 06:44 Polychromasia Not Reportable 06/17/17 06:44 Hypochromasia Not Reportable 06/17/17 06:44 Poikilocytosis Not Reportable 06/17/17 06:44 Anisocytosis Rare 06/17/17 06:44 Microcytosis Not Reportable 06/17/17 06:44 Macrocytosis Few 06/17/17 06:44 Spherocytes Not Reportable 06/17/17 06:44 Pappenheimer Bodies Not Reportable 06/17/17 06:44 Sickle Cells Not Reportable 06/17/17 06:44 Target Cells Not Reportable 06/17/17 06:44 Tear Drop Cells Not Reportable 06/17/17 06:44 Ovalocytes Not Reportable 06/17/17 06:44 Helmet Cells Not Reportable 06/17/17 06:44 Tang-[place] Bodies Not Reportable 06/17/17 06:44 [place] Rings Not Reportable 06/17/17 06:44 [place] Cells Not Reportable 06/17/17 06:44 Bite Cells Not Reportable 06/17/17 06:44 Crenated Cell Not Reportable 06/17/17 06:44 Elliptocytes Not Reportable 06/17/17 06:44 Acanthocytes (Spur) Not Reportable 06/17/17 06:44 Rouleaux Not Reportable 06/17/17 06:44 Hemoglobin C Crystals Not Reportable 06/17/17 06:44 Schistocytes Not Reportable 06/17/17 06:44 Malaria parasites Not Reportable 06/17/17 06:44 [place]twan Bodies Not Reportable 06/17/17 06:44 Hem Pathologist Commnt No 06/17/17 06:44 PT 33.3 Sec. (12.2-14.9) H 06/17/17 06:44 INR 3.03 (0.87-1.13) H 06/17/17 06:44 APTT 24.0 Sec. (24.2-36.6) L 06/10/17 00:47 D-Dimer 4355.41 ng/mlDDU (0-234) H 06/10/17 21:45 POC ABG pH 7.443 (7.35-7.45) 06/10/17 00:35 POC ABG pCO2 34.8 (35-45) L 06/10/17 00:35 POC ABG pO2 56 (80-105) L 06/10/17 00:35 POC ABG HCO3 23.8 06/10/17 00:35 POC ABG Total CO2 25 06/10/17 00:35 POC ABG O2 Sat 90 06/10/17 00:35 POC ABG Base Excess 0 06/10/17 00:35 FiO2 100 % 06/10/17 00:35 Sodium 141 mmol/L (137-145) 06/17/17 06:44 Potassium 4.1 mmol/L (3.6-5.0) 06/17/17 06:44 Chloride 105.1 mmol/L (98-107) 06/17/17 06:44 Carbon Dioxide 26 mmol/L (22-30) 06/17/17 06:44 Anion Gap 14 mmol/L 06/17/17 06:44 BUN 27 mg/dL (9-20) H 06/17/17 06:44 Creatinine 1.4 mg/dL (0.8-1.5) 06/17/17 06:44 Estimated GFR > 60 ml/min 06/17/17 06:44 BUN/Creatinine Ratio 19 % 06/17/17 06:44 Glucose 97 mg/dL (75-100) 06/17/17 06:44 POC Glucose 104 (70-105) 06/17/17 12:19 Lactic Acid 1.70 mmol/L (0.7-2.0) 06/10/17 02:47 Calcium 8.6 mg/dL (8.4-10.2) 06/17/17 06:44 Total Bilirubin 0.50 mg/dL (0.1-1.2) 06/10/17 00:47 AST 43 units/L (5-40) H 06/10/17 00:47 ALT 30 units/L (7-56) 06/10/17 00:47 Alkaline Phosphatase 119 units/L (35-129) 06/10/17 00:47 Total Creatine Kinase 102 units/L (55-170) 06/10/17 21:45 CK-MB (CK-2) 2.2 ng/mL (0.0-4.0) 06/10/17 21:45 CK-MB (CK-2) Rel Index 2.1 (0-4) 06/10/17 21:45 Troponin T 0.063 ng/mL (0.00-0.029) H D 06/10/17 21:45 C-Reactive Protein 17.00 mg/dL (0.00-1.30) H 06/12/17 16:52 NT-Pro-B Natriuret Pep 3826 pg/mL (0-900) H 06/10/17 02:40 Total Protein 7.2 g/dL (6.3-8.2) 06/10/17 00:47 Albumin 3.5 g/dL (3.9-5) L 06/10/17 00:47 Albumin/Globulin Ratio 0.9 % 06/10/17 00:47 Triglycerides 155 mg/dL (2-149) H 06/10/17 00:47 Cholesterol 175 mg/dL (50-199) 06/10/17 00:47 LDL Cholesterol Direct 83 mg/dL (50-130) 06/10/17 00:47 HDL Cholesterol 61 mg/dL (40-59) H 06/10/17 00:47 Cholesterol/HDL Ratio 2.86 % 06/10/17 00:47 Urine Color Yellow (Yellow) 06/11/17 11:39 Urine Turbidity Cloudy (Clear) 06/11/17 11:39 Urine pH 5.0 (5.0-7.0) 06/11/17 11:39 Ur Specific [place] 1.016 (1.003-1.030) 06/11/17 11:39 Urine Protein 30 mg/dl mg/dL (Negative) 06/11/17 11:39 Urine Glucose (UA) Neg mg/dL (Negative) 06/11/17 11:39 Urine Ketones Neg mg/dL (Negative) 06/11/17 11:39 Urine Blood Neg (Negative) 06/11/17 11:39 Urine Nitrite Neg (Negative) 06/11/17 11:39 Urine Bilirubin Neg (Negative) 06/11/17 11:39 Urine Urobilinogen 2.0 mg/dL (<2.0) 06/11/17 11:39 Ur Leukocyte Esterase Mod (Negative) 06/11/17 11:39 Urine WBC (Auto) 31.0 /HPF (0.0-6.0) H 06/11/17 11:39 Urine RBC (Auto) 4.0 /HPF (0.0-6.0) 06/11/17 11:39 U Epithel Cells (Auto) 1.0 /HPF (0-13.0) 06/11/17 11:39 Urine Bacteria (Auto) 1+ /HPF (Negative) 06/11/17 11:39 Digoxin 0.8 ng/mL (0.9-2.0) L 06/11/17 23:32
[2017-06-17] MEDS: CORDARONE PO SCH (17:52)
[2017-06-17] MEDS: PRAVACHOL PO SCH (21:25)
[2017-06-18] MEDS: ZOSYN/NS 4.5GM/100ML 4.5 GM/100 ML VIAL IV SCH (05:36)
[2017-06-18] MEDS: BUMEX PO SCH ×2 (05:42→17:48)
[2017-06-18 06:44] LABS: INR 2.56 (0.87-1.13)
[2017-06-18] MEDS: NOVOLOG SUB-Q SCH ×5 (08:39→22:35)
--- NOTE | 2017-06-18 10:01 | Progress Note ---
Assessment and Plan Assessment and plan: Syncope. Etiology multifactorial secondary to sepsis associated hypotension and V. tach. VT -->shocked x 3 (06/11/17) Pt's body weight exceeds the weight limit of quality assurance qa lab technician/EP lab table of 450lb and thus we are unable to proceed with coronary angiography or AICD implantation at this time. LifeVest has been ordered as an alternative. Paroxysmal atrial fibrillation with abberancy Acute on chronic HFREF EF 10-15% Cardiomyopathy - EF 10-15% Sepsis: resolved. Etiology unclear ? UTI ? bacteremia. CRP=17, Coag neg Staph in blood cultures ? real vs a contaminant. Blood cx + 2 of 2 bottles on 06/10, repeat blood cx on 06/12 negative so far. History of recent left AC [facility] infection at [facility] most recent blood cultures on 06/12 negative. Zosyn discontinue. Vancomycin renally dosed. Upon discharge, we will continue vancomycin 1750 mg IV q 12 hours for 14 days from 06/12 until 06/25 Hypertension. Continue antihypertensive medication Hyperlipidemia. DM. Continue sliding-scale insulin and Accu-Cheks SKYE on CKD - improved; renal indices stable NHUNG on CPAP Severe pulmonary HTN Morbid obesity History Interval history: No new issues overnight Hospitalist Physical - Constitutional Vitals: Temp Pulse Resp BP Pulse Ox 97.5 F L 49 L 23 121/70 96 06/18/17 05:24 06/18/17 05:24 06/18/17 05:24 06/18/17 05:24 06/18/17 09:10 General appearance: Present: no acute distress, obese - EENT Eyes: Present: PERRL, EOM intact ENT: hearing intact, clear oral mucosa, dentition normal - Neck Neck: Present: supple, normal ROM - Respiratory Respiratory effort: normal Respiratory: bilateral: CTA - Cardiovascular Rhythm: regular Heart Sounds: Present: S1 & S2. Absent: gallop, rub - Extremities Extremities: no ischemia, No edema, Full ROM - Abdominal General gastrointestinal: soft, non-tender, non-distended, normal bowel sounds - Integumentary Integumentary: Present: clear, warm, dry - Neurologic Neurologic: CNII-XII intact, moves all extremities Results - Labs CBC & Chem 7: 06/17/17 06:44 06/17/17 06:44 Labs: Laboratory Last Values WBC 9.4 K/mm3 (4.5-11.0) 06/17/17 06:44 RBC 3.60 M/mm3 (3.65-5.03) L 06/17/17 06:44 Hgb 10.8 gm/dl (11.8-15.2) L 06/17/17 06:44 Hct 34.0 % (35.5-45.6) L 06/17/17 06:44 MCV 95 fl (84-94) H 06/17/17 06:44 MCH 30 pg (28-32) 06/17/17 06:44 MCHC 32 % (32-34) 06/17/17 06:44 RDW 15.5 % (13.2-15.2) H 06/17/17 06:44 Plt Count 240 K/mm3 (140-440) 06/17/17 06:44 Lymph % (Auto) 29.3 % (13.4-35.0) 06/14/17 05:16 [place] % (Auto) 13.3 % (0.0-7.3) H 06/14/17 05:16 Eos % (Auto) 0.9 % (0.0-4.3) 06/14/17 05:16 Baso % (Auto) 0.7 % (0.0-1.8) 06/14/17 05:16 Lymph # 2.1 K/mm3 (1.2-5.4) 06/14/17 05:16 [place] # 0.9 K/mm3 (0.0-0.8) H 06/14/17 05:16 Eos # 0.1 K/mm3 (0.0-0.4) 06/14/17 05:16 Baso # 0.1 K/mm3 (0.0-0.1) 06/14/17 05:16 Add Manual Diff Complete 06/17/17 06:44 Total Counted 100 06/17/17 06:44 Seg Neutrophils % 55.8 % (40.0-70.0) 06/14/17 05:16 Seg Neuts % (Manual) 64.0 % (40.0-70.0) 06/17/17 06:44 Band Neutrophils % 5.0 % 06/17/17 06:44 Lymphocytes % (Manual) 25.0 % (13.4-35.0) 06/17/17 06:44 Reactive Lymphs % (Man) 0 % 06/17/17 06:44 Monocytes % (Manual) 5.0 % (0.0-7.3) 06/17/17 06:44 Eosinophils % (Manual) 0 % (0.0-4.3) 06/17/17 06:44 Basophils % (Manual) 0 % (0.0-1.8) 06/17/17 06:44 Metamyelocytes % 1.0 % 06/17/17 06:44 Myelocytes % 0 % 06/17/17 06:44 Promyelocytes % 0 % 06/17/17 06:44 Blast Cells % 0 % 06/17/17 06:44 Nucleated RBC % Not Reportable 06/17/17 06:44 Seg Neutrophils # 3.9 K/mm3 (1.8-7.7) 06/14/17 05:16 Seg Neutrophils # Man 6.0 K/mm3 (1.8-7.7) 06/17/17 06:44 Band Neutrophils # 0.5 K/mm3 06/17/17 06:44 Lymphocytes # (Manual) 2.4 K/mm3 (1.2-5.4) 06/17/17 06:44 Abs React Lymphs (Man) 0.0 K/mm3 06/17/17 06:44 Monocytes # (Manual) 0.5 K/mm3 (0.0-0.8) 06/17/17 06:44 Eosinophils # (Manual) 0.0 K/mm3 (0.0-0.4) 06/17/17 06:44 Basophils # (Manual) 0.0 K/mm3 (0.0-0.1) 06/17/17 06:44 Metamyelocytes # 0.1 K/mm3 06/17/17 06:44 Myelocytes # 0.0 K/mm3 06/17/17 06:44 Promyelocytes # 0.0 K/mm3 06/17/17 06:44 Blast Cells # 0.0 K/mm3 06/17/17 06:44 WBC Morphology Not Reportable 06/17/17 06:44 Hypersegmented Neuts Not Reportable 06/17/17 06:44 Hyposegmented Neuts Not Reportable 06/17/17 06:44 Hypogranular Neuts Not Reportable 06/17/17 06:44 Smudge Cells Not Reportable 06/17/17 06:44 Toxic Granulation Not Reportable 06/17/17 06:44 Toxic Vacuolation Not Reportable 06/17/17 06:44 Dohle Bodies Not Reportable 06/17/17 06:44 Pelger-Huet Anomaly Not Reportable 06/17/17 06:44 Dolly Rods Not Reportable 06/17/17 06:44 Platelet Estimate Consistent w auto 06/17/17 06:44 Clumped Platelets Not Reportable 06/17/17 06:44 Plt Clumps, EDTA Not Reportable 06/17/17 06:44 Large Platelets Not Reportable 06/17/17 06:44 Giant Platelets Not Reportable 06/17/17 06:44 Platelet Satelliting Not Reportable 06/17/17 06:44 Plt Morphology Comment Not Reportable 06/17/17 06:44 RBC Morphology Not Reportable 06/17/17 06:44 Dimorphic RBCs Not Reportable 06/17/17 06:44 Polychromasia Not Reportable 06/17/17 06:44 Hypochromasia Not Reportable 06/17/17 06:44 Poikilocytosis Not Reportable 06/17/17 06:44 Anisocytosis Rare 06/17/17 06:44 Microcytosis Not Reportable 06/17/17 06:44 Macrocytosis Few 06/17/17 06:44 Spherocytes Not Reportable 06/17/17 06:44 Pappenheimer Bodies Not Reportable 06/17/17 06:44 Sickle Cells Not Reportable 06/17/17 06:44 Target Cells Not Reportable 06/17/17 06:44 Tear Drop Cells Not Reportable 06/17/17 06:44 Ovalocytes Not Reportable 06/17/17 06:44 Helmet Cells Not Reportable 06/17/17 06:44 Tang-[place] Bodies Not Reportable 06/17/17 06:44 [place] Rings Not Reportable 06/17/17 06:44 [place] Cells Not Reportable 06/17/17 06:44 Bite Cells Not Reportable 06/17/17 06:44 Crenated Cell Not Reportable 06/17/17 06:44 Elliptocytes Not Reportable 06/17/17 06:44 Acanthocytes (Spur) Not Reportable 06/17/17 06:44 Rouleaux Not Reportable 06/17/17 06:44 Hemoglobin C Crystals Not Reportable 06/17/17 06:44 Schistocytes Not Reportable 06/17/17 06:44 Malaria parasites Not Reportable 06/17/17 06:44 Antwan Bodies Not Reportable 06/17/17 06:44 Hem Pathologist Commnt No 06/17/17 06:44 PT 29.1 Sec. (12.2-14.9) H 06/18/17 05:50 INR 2.56 (0.87-1.13) H 06/18/17 05:50 APTT 24.0 Sec. (24.2-36.6) L 06/10/17 00:47 D-Dimer 4355.41 ng/mlDDU (0-234) H 06/10/17 21:45 POC ABG pH 7.443 (7.35-7.45) 06/10/17 00:35 POC ABG pCO2 34.8 (35-45) L 06/10/17 00:35 POC ABG pO2 56 (80-105) L 06/10/17 00:35 POC ABG HCO3 23.8 06/10/17 00:35 POC ABG Total CO2 25 06/10/17 00:35 POC ABG O2 Sat 90 06/10/17 00:35 POC ABG Base Excess 0 06/10/17 00:35 FiO2 100 % 06/10/17 00:35 Sodium 141 mmol/L (137-145) 06/17/17 06:44 Potassium 4.1 mmol/L (3.6-5.0) 06/17/17 06:44 Chloride 105.1 mmol/L (98-107) 06/17/17 06:44 Carbon Dioxide 26 mmol/L (22-30) 06/17/17 06:44 Anion Gap 14 mmol/L 06/17/17 06:44 BUN 27 mg/dL (9-20) H 06/17/17 06:44 Creatinine 1.4 mg/dL (0.8-1.5) 06/17/17 06:44 Estimated GFR > 60 ml/min 06/17/17 06:44 BUN/Creatinine Ratio 19 % 06/17/17 06:44 Glucose 97 mg/dL (75-100) 01/09/18 06:44 POC Glucose 88 (70-105) 06/18/17 08:36 Lactic Acid 1.70 mmol/L (0.7-2.0) 06/10/17 02:47 Calcium 8.6 mg/dL (8.4-10.2) 06/17/17 06:44 Total Bilirubin 0.50 mg/dL (0.1-1.2) 06/10/17 00:47 AST 43 units/L (5-40) H 06/10/17 00:47 ALT 30 units/L (7-56) 06/10/17 00:47 Alkaline Phosphatase 119 units/L (35-129) 06/10/17 00:47 Total Creatine Kinase 102 units/L (55-170) 06/10/17 21:45 CK-MB (CK-2) 2.2 ng/mL (0.0-4.0) 06/10/17 21:45 CK-MB (CK-2) Rel Index 2.1 (0-4) 06/10/17 21:45 Troponin T 0.063 ng/mL (0.00-0.029) H D 06/10/17 21:45 C-Reactive Protein 17.00 mg/dL (0.00-1.30) H 06/12/17 16:52 NT-Pro-B Natriuret Pep 3826 pg/mL (0-900) H 06/10/17 02:40 Total Protein 7.2 g/dL (6.3-8.2) 06/10/17 00:47 Albumin 3.5 g/dL (3.9-5) L 06/10/17 00:47 Albumin/Globulin Ratio 0.9 % 06/10/17 00:47 Triglycerides 155 mg/dL (2-149) H 06/10/17 00:47 Cholesterol 175 mg/dL (50-199) 06/10/17 00:47 LDL Cholesterol Direct 83 mg/dL (50-130) 06/10/17 00:47 HDL Cholesterol 61 mg/dL (40-59) H 06/10/17 00:47 Cholesterol/HDL Ratio 2.86 % 06/10/17 00:47 Urine Color Yellow (Yellow) 06/11/17 11:39 Urine Turbidity Cloudy (Clear) 06/11/17 11:39 Urine pH 5.0 (5.0-7.0) 06/11/17 11:39 Ur Specific [place] 1.016 (1.003-1.030) 06/11/17 11:39 Urine Protein 30 mg/dl mg/dL (Negative) 06/11/17 11:39 Urine Glucose (UA) Neg mg/dL (Negative) 06/11/17 11:39 Urine Ketones Neg mg/dL (Negative) 06/11/17 11:39 Urine Blood Neg (Negative) 06/11/17 11:39 Urine Nitrite Neg (Negative) 06/11/17 11:39 Urine Bilirubin Neg (Negative) 06/11/17 11:39 Urine Urobilinogen 2.0 mg/dL (<2.0) 06/11/17 11:39 Ur Leukocyte Esterase Mod (Negative) 06/11/17 11:39 Urine WBC (Auto) 31.0 /HPF (0.0-6.0) H 06/11/17 11:39 Urine RBC (Auto) 4.0 /HPF (0.0-6.0) 06/11/17 11:39 U Epithel Cells (Auto) 1.0 /HPF (0-13.0) 06/11/17 11:39 Urine Bacteria (Auto) 1+ /HPF (Negative) 06/11/17 11:39 Vancomycin Trough 37.0 ug/mL (5.0-20.0) H 06/17/17 21:40 Digoxin 0.8 ng/mL (0.9-2.0) L 06/11/17 23:32
[2017-06-18] MEDS: COREG PO SCH ×2 (10:02→22:04)
[2017-06-18] MEDS: CORDARONE PO SCH (10:41)
[2017-06-18] MEDS: ZYLOPRIM PO SCH (10:41)
[2017-06-18] MEDS: DELTASONE PO SCH (10:41)
[2017-06-18] MEDS: NEURONTIN PO SCH ×2 (10:42→22:04)
[2017-06-18] MEDS: GLUCOTROL PO SCH ×2 (10:42→22:04)
[2017-06-18] MEDS: BABY ASPIRIN PO SCH (10:42)
[2017-06-18] MEDS: IMDUR PO SCH (10:42)
[2017-06-18] MEDS: ZESTRIL PO SCH (10:44)
[2017-06-18] MEDS: VANCOMYCIN 1,750 MG in NACL 0.9% 500 ML 500 ML IV SCH ×2 (10:46→22:40)
--- NOTE | 2017-06-18 11:35 | Progress Note ---
Assessment and Plan Assessment: 1) Sepsis: resolved. Etiology unclear ? UTI ? bacteremia. CRP=17 2) Syncopal episode at home 3) Coag neg Staph in blood cultures ? real vs a contaminant. Blood cx + 2 of 2 bottles on 06/10, repeat blood cx on 06/12 negative so far. History of recent left AC PIV line infection at [facility] 4) V tach vs. afib with abberancy s/p shocked x 3 and started on an amiodarone gtt. 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 LifeVest has been ordered as an alternative. -stop zosyn -continue vanco renally dosed -upon discharge will continue vancomycin 1750 mg IV q 12 hours for 14 days from 06/12 until 06/25 -close monitoring of creat and vanco trough goal 15-18 I am signing off Thank you Dr Monzon for your consultation, will follow up with you. Kiara Sampson MD Infectious Diseases Specialist [facility] M [phone] O [phone] Subjective Date of service: 06/18/17 Principal diagnosis: syncope, vtach vs. afib with abberancy Interval history: Feels great, no fever, no pain, wants to go home. Microbiology: Blood cultures: 06/10 Coag neg 2 of 2 06/12 ngtd Urine cultures: Current Antimicrobials: vanco 06/12 Previous Antimicrobials: Zosyn 06/12 Objective - Exam Narrative Exam: General appearance: Alert in NAD, conversant morbidly obese Eyes: anicteric sclerae, moist conjunctivae; no lid-lag; PERRLA HENT: Atraumatic; oropharynx clear Neck: Trachea midline; supple, no thyromegaly or lymphadenopathy Lungs: CTA CV: RRR Abdomen: Soft, extensive pannus Extremities: cee leg edema Skin: Normal temperature, turgor and texture; no rash, ulcers or subcutaneous nodules Psych: Appropriate affect, alert and oriented to person, place and time. Neuro: alert and oriented x 3. Moving all extermities Lines: No CVL / PICC - Constitutional Vitals: Vital Signs Temp Pulse Resp BP Pulse Ox 97.5 F L 56 L 23 141/93 96 06/18/17 05:24 06/18/17 10:44 06/18/17 05:24 06/18/17 10:44 06/18/17 09:10 Temperature -Last 24 Hours Temperature 97.5 F Temperature 98.6 F Temperature 97.7 F Temperature 97.9 F - Labs CBC & Chem 7: 06/17/17 06:44 06/17/17 06:44 Labs: Abnormal lab results 06/17/17 06/17/17 06/17/17 Range/Units 05:55 17:36 21:14 PT (12.2-14.9) Sec. INR (0.87-1.13) POC Glucose 108 H 106 H 216 H (70-105) Vancomycin Trough (5.0-20.0) ug/mL 06/17/17 06/18/17 Range/Units 21:40 05:50 PT 29.1 H (12.2-14.9) Sec. INR 2.56 H (0.87-1.13) POC Glucose (70-105) Vancomycin Trough 37.0 H (5.0-20.0) ug/mL
--- NOTE | 2017-06-18 11:52 | Progress Note ---
Assessment and Plan Assessment: Syncope VT -->shocked x 3 (06/11/17) Paroxysmal atrial fibrillation with aberrancy Acute on chronic HFREF EF 10-15% Cardiomyopathy - EF 10-15% Hypotension -->improved with IVF Fever/?bacteremia - most recent blood cultures on 06/12 negative Hypertension Hyperlipidemia DM SKYE on CKD - improved; renal indices stable NHUNG on CPAP Severe pulmonary HTN Morbid obesity Plan: Currently stable cardiac status. Cont present cardiac regimen. Pending LifeVest is placed, pt may discharge home from cardiology standpoint and he is to follow up with his primary cardiology team at [place]. Recommend follow up with a associate application developer within 1 week of hospital discharge. Assessment and plan reviewed with pt at bedside. The patient has been seen in conjunction with Dr. Liao who agrees with the assessment and plan of care. Subjective Date of service: 06/18/17 Principal diagnosis: syncope, vtach vs. afib with abberancy Interval history: Pt resting comfortably in bed, no current complaints. No acute events overnight. Awaiting LifeVest placement. Objective Last Vital Signs Temp 97.5 F L 06/18/17 05:24 Pulse 56 L 06/18/17 10:44 Resp 23 06/18/17 05:24 BP 141/93 06/18/17 10:44 Pulse Ox 96 06/18/17 09:10 - Physical Examination General: No Apparent Distress HEENT: Positive: PERRL, Normocephaly, Mucus Membranes Moist Neck: Positive: neck supple, trachea midline Cardiac: Positive: Reg Rate and Rhythm, S1/S2 Lungs: Positive: Decreased Breath Sounds Neuro: Positive: Grossly Intact Abdomen: Positive: Soft, Active Bowel Sounds. Negative: Tender Skin: Negative: Rash Extremities: Present: +1 Edema - Labs and Meds Coagulation 06/18/17 Range/Units 05:50 PT 29.1 H (12.2-14.9) Sec. INR 2.56 H (0.87-1.13) - Imaging and Cardiology EKG: report reviewed Echo: report reviewed ( 06/10/17 showed EF 10-15%, mod LVH, LA mildly dilated, mild MR, mild TR, RVSP 59mmHg)
[2017-06-18] MEDS: COUMADIN PO SCH (17:48)
[2017-06-18] MEDS: PRAVACHOL PO SCH (22:04)
[2017-06-19] MEDS: BUMEX PO SCH ×2 (06:22→17:30)
[2017-06-19 06:44] LABS: INR 2.35 (0.87-1.13)
[2017-06-19] MEDS: NOVOLOG SUB-Q SCH ×3 (08:05→17:29)
[2017-06-19] MEDS: NEURONTIN PO SCH ×2 (09:42→21:49)
[2017-06-19] MEDS: GLUCOTROL PO SCH ×2 (09:42→21:50)
[2017-06-19] MEDS: DELTASONE PO SCH (09:43)
[2017-06-19] MEDS: ZYLOPRIM PO SCH (09:43)
[2017-06-19] MEDS: CORDARONE PO SCH (09:43)
[2017-06-19] MEDS: IMDUR PO SCH (09:43)
[2017-06-19] MEDS: ZESTRIL PO SCH (09:43)
[2017-06-19] MEDS: COREG PO SCH ×2 (10:29→21:50)
[2017-06-19] MEDS: BABY ASPIRIN PO SCH (10:32)
--- NOTE | 2017-06-19 11:58 | Progress Note ---
Assessment and Plan Assessment and plan: Syncope. Etiology multifactorial secondary to sepsis associated hypotension and V. tach. 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 LifeVest has been ordered as an alternative. Paroxysmal atrial fibrillation with abberancy Acute on chronic HFREF EF 10-15% Cardiomyopathy - EF 10-15% Sepsis: resolved. Etiology unclear ? UTI ? bacteremia. CRP=17, Coag neg Staph in blood cultures ? real vs a contaminant. Blood cx + 2 of 2 bottles on 06/10, repeat blood cx on 06/12 negative so far. History of recent left AC PIV line infection at [facility] most recent blood cultures on 06/12 negative. Zosyn discontinue. Vancomycin renally dosed. Upon discharge, we will continue vancomycin 1750 mg IV q 12 hours for 14 days from 06/12 until 06/25 Hypertension. Continue antihypertensive medication Hyperlipidemia. DM. Continue sliding-scale insulin and Accu-Cheks SKYE on CKD - improved; renal indices stable NHUNG on CPAP Severe pulmonary HTN Morbid obesity Disposition. I discussed with case management discharge planning. Await life vest and arrangement of home IV antibiotics. History Interval history: No new issues overnight Hospitalist Physical - Constitutional Vitals: Temp Pulse Resp BP Pulse Ox 97.6 F 56 L 18 132/77 97 06/19/17 08:21 06/19/17 10:29 06/19/17 08:21 06/19/17 09:43 06/19/17 08:21 General appearance: Present: no acute distress, obese - EENT Eyes: Present: PERRL, EOM intact ENT: hearing intact, clear oral mucosa, dentition normal - Neck Neck: Present: supple, normal ROM - Respiratory Respiratory effort: normal Respiratory: bilateral: CTA - Cardiovascular Rhythm: regular Heart Sounds: Present: S1 & S2. Absent: gallop, rub - Extremities Extremities: no ischemia, No edema, Full ROM - Abdominal General gastrointestinal: soft, non-tender, non-distended, normal bowel sounds - Integumentary Integumentary: Present: clear, warm, dry - Neurologic Neurologic: CNII-XII intact, moves all extremities Results - Labs CBC & Chem 7: 06/17/17 06:44 01/09/18 06:44 Labs: Laboratory Last Values WBC 9.4 K/mm3 (4.5-11.0) 06/17/17 06:44 RBC 3.60 M/mm3 (3.65-5.03) L 06/17/17 06:44 Hgb 10.8 gm/dl (11.8-15.2) L 06/17/17 06:44 Hct 34.0 % (35.5-45.6) L 06/17/17 06:44 MCV 95 fl (84-94) H 06/17/17 06:44 MCH 30 pg (28-32) 06/17/17 06:44 MCHC 32 % (32-34) 06/17/17 06:44 RDW 15.5 % (13.2-15.2) H 06/17/17 06:44 Plt Count 240 K/mm3 (140-440) 06/17/17 06:44 Lymph % (Auto) 29.3 % (13.4-35.0) 06/14/17 05:16 [place] % (Auto) 13.3 % (0.0-7.3) H 06/14/17 05:16 Eos % (Auto) 0.9 % (0.0-4.3) 06/14/17 05:16 Baso % (Auto) 0.7 % (0.0-1.8) 06/14/17 05:16 Lymph # 2.1 K/mm3 (1.2-5.4) 06/14/17 05:16 [place] # 0.9 K/mm3 (0.0-0.8) H 06/14/17 05:16 Eos # 0.1 K/mm3 (0.0-0.4) 06/14/17 05:16 Baso # 0.1 K/mm3 (0.0-0.1) 06/14/17 05:16 Add Manual Diff Complete 06/17/17 06:44 Total Counted 100 06/17/17 06:44 Seg Neutrophils % 55.8 % (40.0-70.0) 06/14/17 05:16 Seg Neuts % (Manual) 64.0 % (40.0-70.0) 06/17/17 06:44 Band Neutrophils % 5.0 % 06/17/17 06:44 Lymphocytes % (Manual) 25.0 % (13.4-35.0) 06/17/17 06:44 Reactive Lymphs % (Man) 0 % 06/17/17 06:44 Monocytes % (Manual) 5.0 % (0.0-7.3) 06/17/17 06:44 Eosinophils % (Manual) 0 % (0.0-4.3) 06/17/17 06:44 Basophils % (Manual) 0 % (0.0-1.8) 06/17/17 06:44 Metamyelocytes % 1.0 % 06/17/17 06:44 Myelocytes % 0 % 06/17/17 06:44 Promyelocytes % 0 % 06/17/17 06:44 Blast Cells % 0 % 06/17/17 06:44 Nucleated RBC % Not Reportable 06/17/17 06:44 Seg Neutrophils # 3.9 K/mm3 (1.8-7.7) 06/14/17 05:16 Seg Neutrophils # Man 6.0 K/mm3 (1.8-7.7) 06/17/17 06:44 Band Neutrophils # 0.5 K/mm3 06/17/17 06:44 Lymphocytes # (Manual) 2.4 K/mm3 (1.2-5.4) 06/17/17 06:44 Abs React Lymphs (Man) 0.0 K/mm3 06/17/17 06:44 Monocytes # (Manual) 0.5 K/mm3 (0.0-0.8) 06/17/17 06:44 Eosinophils # (Manual) 0.0 K/mm3 (0.0-0.4) 06/17/17 06:44 Basophils # (Manual) 0.0 K/mm3 (0.0-0.1) 06/17/17 06:44 Metamyelocytes # 0.1 K/mm3 06/17/17 06:44 Myelocytes # 0.0 K/mm3 06/17/17 06:44 Promyelocytes # 0.0 K/mm3 06/17/17 06:44 Blast Cells # 0.0 K/mm3 06/17/17 06:44 WBC Morphology Not Reportable 06/17/17 06:44 Hypersegmented Neuts Not Reportable 06/17/17 06:44 Hyposegmented Neuts Not Reportable 06/17/17 06:44 Hypogranular Neuts Not Reportable 06/17/17 06:44 Smudge Cells Not Reportable 06/17/17 06:44 Toxic Granulation Not Reportable 06/17/17 06:44 Toxic Vacuolation Not Reportable 06/17/17 06:44 Dohle Bodies Not Reportable 06/17/17 06:44 Pelger-Huet Anomaly Not Reportable 06/17/17 06:44 Dolly Rods Not Reportable 06/17/17 06:44 Platelet Estimate Consistent w auto 06/17/17 06:44 Clumped Platelets Not Reportable 06/17/17 06:44 Plt Clumps, EDTA Not Reportable 06/17/17 06:44 Large Platelets Not Reportable 06/17/17 06:44 Giant Platelets Not Reportable 06/17/17 06:44 Platelet Satelliting Not Reportable 06/17/17 06:44 Plt Morphology Comment Not Reportable 06/17/17 06:44 RBC Morphology Not Reportable 06/17/17 06:44 Dimorphic RBCs Not Reportable 06/17/17 06:44 Polychromasia Not Reportable 06/17/17 06:44 Hypochromasia Not Reportable 06/17/17 06:44 Poikilocytosis Not Reportable 06/17/17 06:44 Anisocytosis Rare 06/17/17 06:44 Microcytosis Not Reportable 06/17/17 06:44 Macrocytosis Few 06/17/17 06:44 Spherocytes Not Reportable 06/17/17 06:44 Pappenheimer Bodies Not Reportable 06/17/17 06:44 Sickle Cells Not Reportable 06/17/17 06:44 Target Cells Not Reportable 06/17/17 06:44 Tear Drop Cells Not Reportable 06/17/17 06:44 Ovalocytes Not Reportable 06/17/17 06:44 Helmet Cells Not Reportable 06/17/17 06:44 [place] Bodies Not Reportable 06/17/17 06:44 [place] Rings Not Reportable 06/17/17 06:44 [place]yl Cells Not Reportable 06/17/17 06:44 Bite Cells Not Reportable 06/17/17 06:44 Crenated Cell Not Reportable 06/17/17 06:44 Elliptocytes Not Reportable 06/17/17 06:44 Acanthocytes (Spur) Not Reportable 06/17/17 06:44 Rouleaux Not Reportable 06/17/17 06:44 Hemoglobin C Crystals Not Reportable 06/17/17 06:44 Schistocytes Not Reportable 06/17/17 06:44 Malaria parasites Not Reportable 06/17/17 06:44 [place] Bodies Not Reportable 06/17/17 06:44 Hem Pathologist Commnt No 06/17/17 06:44 PT 27.1 Sec. (12.2-14.9) H 06/19/17 05:40 INR 2.35 (0.87-1.13) H 06/19/17 05:40 APTT 24.0 Sec. (24.2-36.6) L 06/10/17 00:47 D-Dimer 4355.41 ng/mlDDU (0-234) H 06/10/17 21:45 POC ABG pH 7.443 (7.35-7.45) 06/10/17 00:35 POC ABG pCO2 34.8 (35-45) L 06/10/17 00:35 POC ABG pO2 56 (80-105) L 06/10/17 00:35 POC ABG HCO3 23.8 06/10/17 00:35 POC ABG Total CO2 25 06/10/17 00:35 POC ABG O2 Sat 90 06/10/17 00:35 POC ABG Base Excess 0 06/10/17 00:35 FiO2 100 % 06/10/17 00:35 Sodium 141 mmol/L (137-145) 06/17/17 06:44 Potassium 4.1 mmol/L (3.6-5.0) 06/17/17 06:44 Chloride 105.1 mmol/L (98-107) 06/17/17 06:44 Carbon Dioxide 26 mmol/L (22-30) 06/17/17 06:44 Anion Gap 14 mmol/L 06/17/17 06:44 BUN 27 mg/dL (9-20) H 06/17/17 06:44 Creatinine 1.4 mg/dL (0.8-1.5) 06/17/17 06:44 Estimated GFR > 60 ml/min 06/17/17 06:44 BUN/Creatinine Ratio 19 % 06/17/17 06:44 Glucose 97 mg/dL (75-100) 06/17/17 06:44 POC Glucose 86 (70-105) 06/19/17 07:52 Lactic Acid 1.70 mmol/L (0.7-2.0) 06/10/17 02:47 Calcium 8.6 mg/dL (8.4-10.2) 06/17/17 06:44 Total Bilirubin 0.50 mg/dL (0.1-1.2) 06/10/17 00:47 AST 43 units/L (5-40) H 06/10/17 00:47 ALT 30 units/L (7-56) 06/10/17 00:47 Alkaline Phosphatase 119 units/L (35-129) 06/10/17 00:47 Total Creatine Kinase 102 units/L (55-170) 06/10/17 21:45 CK-MB (CK-2) 2.2 ng/mL (0.0-4.0) 06/10/17 21:45 CK-MB (CK-2) Rel Index 2.1 (0-4) 06/10/17 21:45 Troponin T 0.063 ng/mL (0.00-0.029) H D 06/10/17 21:45 C-Reactive Protein 17.00 mg/dL (0.00-1.30) H 06/12/17 16:52 NT-Pro-B Natriuret Pep 3826 pg/mL (0-900) H 06/10/17 02:40 Total Protein 7.2 g/dL (6.3-8.2) 06/10/17 00:47 Albumin 3.5 g/dL (3.9-5) L 06/10/17 00:47 Albumin/Globulin Ratio 0.9 % 06/10/17 00:47 Triglycerides 155 mg/dL (2-149) H 06/10/17 00:47 Cholesterol 175 mg/dL (50-199) 06/10/17 00:47 LDL Cholesterol Direct 83 mg/dL (50-130) 06/10/17 00:47 HDL Cholesterol 61 mg/dL (40-59) H 06/10/17 00:47 Cholesterol/HDL Ratio 2.86 % 06/10/17 00:47 Urine Color Yellow (Yellow) 06/11/17 11:39 Urine Turbidity Cloudy (Clear) 06/11/17 11:39 Urine pH 5.0 (5.0-7.0) 06/11/17 11:39 Ur Specific [place] 1.016 (1.003-1.030) 06/11/17 11:39 Urine Protein 30 mg/dl mg/dL (Negative) 06/11/17 11:39 Urine Glucose (UA) Neg mg/dL (Negative) 06/11/17 11:39 Urine Ketones Neg mg/dL (Negative) 06/11/17 11:39 Urine Blood Neg (Negative) 06/11/17 11:39 Urine Nitrite Neg (Negative) 06/11/17 11:39 Urine Bilirubin Neg (Negative) 06/11/17 11:39 Urine Urobilinogen 2.0 mg/dL (<2.0) 06/11/17 11:39 Ur Leukocyte Esterase Mod (Negative) 06/11/17 11:39 Urine WBC (Auto) 31.0 /HPF (0.0-6.0) H 06/11/17 11:39 Urine RBC (Auto) 4.0 /HPF (0.0-6.0) 06/11/17 11:39 U Epithel Cells (Auto) 1.0 /HPF (0-13.0) 06/11/17 11:39 Urine Bacteria (Auto) 1+ /HPF (Negative) 06/11/17 11:39 Vancomycin Trough 39.5 ug/mL (5.0-20.0) H 06/18/17 21:45 Digoxin 0.8 ng/mL (0.9-2.0) L 06/11/17 23:32
--- NOTE | 2017-06-19 12:01 | Progress Note ---
Assessment and Plan 1) Sepsis: resolved. Etiology unclear ? UTI ? bacteremia. CRP=17 2) Syncopal episode at home 3) Coag neg Staph in blood cultures ? real vs a contaminant. Blood cx + 2 of 2 bottles on 06/10, repeat blood cx on 06/12 negative so far. History of recent left AC PIV line infection at [facility] 4) V tach vs. afib with abberancy s/p shocked x 3 and started on an amiodarone gtt. 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 LifeVest has been ordered as an alternative. -stop zosyn -continue vanco renally dosed -upon discharge will continue vancomycin 1750 mg IV q 12 hours for 14 days from 06/12 until 06/25 -close monitoring of creat and vanco trough goal 15-18 will sign off Thank you Dr Monzon for your consultation, will follow up with you. Elie Dalal NP-C for Kiara Sampson MD Infectious Diseases Specialist [facility] M [phone] O [phone] Subjective Date of service: 06/19/17 Principal diagnosis: syncope, vtach vs. afib with abberancy Interval history: I feel so much better today and I want to go home Microbiology: Blood cultures: 06/10 Coag neg 2 of 2 06/12 ngtd Urine cultures: Current Antimicrobials: vanco 06/12 Previous Antimicrobials: Zosyn 06/12 Objective - Exam Narrative Exam: General appearance: very obese in NAD, conversant Eyes: anicteric sclerae, moist conjunctivae; no lid-lag; PERRLA HENT: Atraumatic; oropharynx clear Neck: Trachea midline; supple, no thyromegaly or lymphadenopathy Lungs: CTA bilaterally CV: RRR, no thrills Abdomen: Soft, extensive pannus Extremities: cee leg edema Skin: Normal temperature, turgor and texture; no rash, ulcers or subcutaneous nodules Psych: Appropriate affect, alert and oriented to person, place and time. Neuro: alert and oriented x 3. Moving all extermities Lines: PICC line RUE - Constitutional Vitals: Vital Signs Temp Pulse Resp BP Pulse Ox 97.6 F 56 L 18 132/77 97 06/19/17 08:21 06/19/17 10:29 06/19/17 08:21 06/19/17 09:43 06/19/17 08:21 Temperature -Last 24 Hours Temperature 97.6 F Temperature 97.5 F Temperature 98.2 F Temperature 98.4 F Temperature 98.0 F - Labs CBC & Chem 7: 06/17/17 06:44 06/17/17 06:44 Labs: Abnormal lab results 06/18/17 06/18/17 06/18/17 Range/Units 11:50 17:43 21:44 PT (12.2-14.9) Sec. INR (0.87-1.13) POC Glucose 52 L 215 H 163 H (70-105) Vancomycin Trough (5.0-20.0) ug/mL 06/18/17 06/19/17 Range/Units 21:45 05:40 PT 27.1 H (12.2-14.9) Sec. INR 2.35 H (0.87-1.13) POC Glucose (70-105) Vancomycin Trough 39.5 H (5.0-20.0) ug/mL
[2017-06-19] MEDS: COUMADIN PO SCH (17:30)
[2017-06-19] MEDS: PRAVACHOL PO SCH (21:49)
[2017-06-20] MEDS: NOVOLOG SUB-Q SCH ×4 (00:48→17:04)
[2017-06-20] MEDS: BUMEX PO SCH ×2 (05:56→17:51)
[2017-06-20 07:27] LABS: INR 2.2 (0.87-1.13)
--- NOTE | 2017-06-20 10:46 | Discharge Summary ---
Providers - Providers Date of Admission: 06/10/17 03:48 Attending physician: MAXIME HARMAN 06/10/17 03:48 Consult to Physician [CONS] Routine Consulting Provider: ERWIN JIMENEZ Reason For Exam: vtac Place consult to:: Dr. Nelida Jimenez..Dr. Nelida Liao Notified:: Answering Service Phone number called:: [phone] Was contact made?: Yes If yes, spoke with:: Dr. 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 Please fax results to [phone] and call [phone] for critical lab results. Kiara Mccormick Date: 06/16/17 Primary care physician: MONTY ERNST Hospitalization Condition: Stable Exam - Constitutional Vitals: Temp Pulse Resp BP Pulse Ox 98.5 F 67 20 143/86 67 L 06/20/17 08:23 06/20/17 08:23 06/20/17 08:23 06/20/17 08:23 06/20/17 08:23 Plan Activity: advance as tolerated, fall precautions Diet: low fat, low cholesterol, low salt, diabetic Follow up with: MONTY ERNST MD [Primary Care Provider] - 3-5 Days Forms: Warfarin Discharge Instruction
--- NOTE | 2017-06-20 11:06 | Discharge Summary ---
Providers - Providers Date of Admission: 06/10/17 03:48 Date of discharge: 06/20/17 Attending physician: MAXIME HARMAN 06/10/17 03:48 Consult to Physician [CONS] Routine Consulting Provider: ERWIN JIMENEZ Reason For Exam: vtac Place consult to:: Dr. Nelida Jimenez..Dr. Nelida Liao Notified:: Answering Service Phone number called:: [phone] Was contact made?: Yes If yes, spoke with:: Dr. 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 Please fax results to [phone] and call [phone] for critical lab results. Kiara Mccormick Date: 06/16/17 Primary care physician: MONTY ERNST Hospitalization Reason for admission: syncope Condition: Stable Hospital course: 51 years old morbidly obese male with history of chronic systolic heart failure , afib on coumadin, hypertension, diabetes, hyperlipidemia, CKD, NHUNG on CPAP, admitted on 07/11/17 due to a syncopal episode at home. He was found to be in v tach vs. afib with abberancy and was shocked x 3 and started on an amiodarone gtt. He denied any chest pain or previous syncopal episodes. He has chronic shortness of breath and HOUSE. Echo showed EF 10-15%. He denied any recent fever, chills, N/V/D, respiratory symptoms. In the emergency room, initial temperature was 101.3, heart rate 134, respiration 34, O2 sat 97, blood pressure 91/67. White count 21.3. Hemoglobin 13.9. Bands 26%. Creatinine 2. Urinalysis showed 31 white blood cells and moderate leukocyte esterase. The patient was admitted with a diagnosis above and V. tach/A. fib as well as sepsis with UTI. The patient was seen by cardiology and infectious disease in consultation. Cardiology initially planned for the patient to undergo left heart catheterization and EP evaluation for possible AICD candidacy. AICD implantation was thought to follow ischemic evaluation. 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 LifeVest has been ordered as an alternative. Case management was consulted and life vest was arranged. With regards to the sepsis/UTI, patient was noted to have coag negative staph blood cultures. Patient was initially treated with vancomycin and Zosyn. The covers was later narrowed to vancomycin only. Recommendations were for continued IV antibiotics until 06/25. Dedicated discharge time 32 minutes. Disposition: DC- TO HOME OR SELFCARE Time spent for discharge: 32 Core Measure Documentation - Palliative Care Palliative Care/ Comfort Measures: Not Applicable - Core Measures Any of the following diagnoses?: none Exam - Constitutional Vitals: Temp Pulse Resp BP Pulse Ox 98.5 F 67 20 143/86 67 L 06/20/17 08:23 06/20/17 08:23 06/20/17 08:23 06/20/17 08:23 06/20/17 08:23 General appearance: Present: no acute distress, obese - EENT Eyes: Present: PERRL ENT: hearing intact, clear oral mucosa - Neck Neck: Present: supple, normal ROM - Respiratory Respiratory effort: normal Respiratory: bilateral: CTA - Cardiovascular Heart Sounds: Present: S1 & S2. Absent: rub, click - Extremities Extremities: pulses symmetrical, No edema Peripheral Pulses: within normal limits - Abdominal General gastrointestinal: Present: soft, non-tender, non-distended, normal bowel sounds Male genitourinary: Present: normal - Integumentary Integumentary: Present: clear, warm, dry - Musculoskeletal Musculoskeletal: gait normal, strength equal bilaterally - Psychiatric Psychiatric: appropriate mood/affect, intact judgment & insight - Neurologic Neurologic: CNII-XII intact, moves all extremities Plan Activity: no restrictions Weight Bearing Status: Full Weight Bearing Diet: low fat, low cholesterol, low salt, diabetic Special Instructions: home health RN Durable Medical Equipment Needed Upon Discharge: other (IV abx and lifevest) Follow up with: MONTY ERNST MD [Primary Care Provider] - 3-5 Days Forms: Warfarin Discharge Instruction Prescriptions: Allopurinol 300 mg PO QDAY #30 tablet Amiodarone [Cordarone 200 MG TAB] 200 mg PO DAILY #30 tablet Aspirin [Aspirin BABY CHEW TAB] 81 mg PO QDAY #30 tab.chew Bumetanide [Bumex 1 mg tab] 1 mg PO 0600,1800 #60 tablet Carvedilol [Coreg] 3.125 mg PO BID #60 tablet Gabapentin [Neurontin] 200 mg PO BID #60 capsule glipiZIDE [Glipizide] 10 mg PO BID #60 tablet ISOSORBIDE MONOnitrate [Imdur ER] 30 mg PO QDAY #30 tablet Lisinopril [Zestril TAB] 2.5 mg PO QDAY #30 tablet Pravastatin [Pravachol] 40 mg PO QHS #30 tablet Warfarin [Coumadin] 6 mg PO DAILY@1700 #30 tablet
[2017-06-20] MEDS: ZESTRIL PO SCH (11:23)
[2017-06-20] MEDS: COREG PO SCH (11:24)
[2017-06-20] MEDS: DELTASONE PO SCH (11:24)
[2017-06-20] MEDS: IMDUR PO SCH (11:24)
[2017-06-20] MEDS: GLUCOTROL PO SCH (11:25)
[2017-06-20] MEDS: BABY ASPIRIN PO SCH (11:25)
[2017-06-20] MEDS: CORDARONE PO SCH (11:25)
[2017-06-20] MEDS: NEURONTIN PO SCH (11:25)
[2017-06-20] MEDS: ZYLOPRIM PO SCH (11:25)
[2017-06-20] MEDS ORDERED: VANCOMYCIN/NS 1 GM/250 ML 1 GM/250 ML BAG IV SCH (16:00)
[2017-06-20 16:17] VITALS: BP 142/88
[2017-06-20] MEDS ORDERED: COUMADIN PO SCH (17:00)
[2017-06-20] MEDS ORDERED: WATER FOR INJ (PF) 10 ML ONE (19:03)
== END 2017-06-20 18:40 | disposition home health service (06) | DRG 871 ==
LOC: ED 00:10 → CC1 03:48 → 4A 06-11 11:05
PROVIDERS: ADMIT Internal Medicine; ATTEND Hospitalist
PROC: 4A033R1 Measurement of Arterial Saturation, Peripheral, Percutaneous Approach (ICD-10-PCS; principal; 2017-06-10)
PROC: 5A09557 Assistance with Respiratory Ventilation, Greater than 96 Consecutive Hours, Continuous Positive Airway Pressure (ICD-10-PCS; 2017-06-10)
PROC: 02HV33Z Insertion of Infusion Device into Superior Vena Cava, Percutaneous Approach (ICD-10-PCS; 2017-06-16)
DX: A41.9 Sepsis, unspecified organism (principal); I50.23 Acute on chronic systolic (congestive) heart failure; I47.2 Ventricular tachycardia; I13.0 Hypertensive heart and chronic kidney disease with heart failure and stage 1 through stage 4 chronic kidney disease, or unspecified chronic kidney disease; Z68.44 Body mass index [BMI] 60.0-69.9, adult; I42.9 Cardiomyopathy, unspecified; J96.10 Chronic respiratory failure, unspecified whether with hypoxia or hypercapnia; N17.9 Acute kidney failure, unspecified; N39.0 Urinary tract infection, site not specified; M10.9 Gout, unspecified; E11.22 Type 2 diabetes mellitus with diabetic chronic kidney disease; N18.9 Chronic kidney disease, unspecified; G47.33 Obstructive sleep apnea (adult) (pediatric); E66.01 Morbid (severe) obesity due to excess calories; I48.0 Paroxysmal atrial fibrillation; I27.20 Pulmonary hypertension, unspecified; Z79.01 Long term (current) use of anticoagulants; Z79.84 Long term (current) use of oral hypoglycemic drugs
CPT/HCPCS: 36415; 71045; 80048; 80053; 80061; 80162; 80202; 81001; 82140; 82550; 82553; 82803; 82962; 83880; 84484; 85007; 85025; 85379; 85610; 85730; 86140; 87040; 87086; 93005; 93010; 93306; 94660; 94760; 96365; A9270-GY; J0282; J1644; J1815; J1885; J2543; J3370; J7040; J7060; J7512